=== PATIENT | female | born 1940 ===

== ENCOUNTER 2016-12-16 12:54 | Inpatient (IN) | payer OTHER ==
[2016-12-16] MEDS ORDERED: BISACODYL 10 MG SUPP PR PRN (16:49)
[2016-12-16] MEDS: SENNOSIDES 1 TAB PO SCH ×2 (17:45→21:36)
[2016-12-16] MEDS: ACETAMINOPHEN 325 MG TAB PO PRN (17:45)
--- NOTE | 2016-12-16 18:58 | GHP ---
[f rep st] HISTORY AND PHYSICAL POST ADMISSION PHYSICIAN EVALUATION AND REHABILITATION TREATMENT PLAN DATE OF ADMISSION: 12/16/2016 DATE OF EVALUATION: 12/16/2016 TIME OF EVALUATION: 1640 REFERRING FACILITY: [facility] REFERRING PHYSICIAN: Dr. Shipman IMPAIRMENT GROUP: 1.1. 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 ETIOLOGIC DIAGNOSIS: Left body involvement (right brain). HISTORY OF PRESENT ILLNESS: This patient went to bed on 12/12/2016, and then woke up not long after with difficulty rolling over in bed, and inability to reposition herself. Facial drooping was noted, 911 was called, and patient was taken to [facility] on a stroke alert. She received thrombolysis. She was diagnosed with a right internal carotid artery and middle cerebral artery occlusion with left hemiparesis, sensory loss and neglect. She received IV hydration in the hospital, but this was discontinued yesterday morning. She had headaches. She had at least 1 dose of tramadol, but mostly headaches have responded to acetaminophen. She was initially treated with labetalol and nicardipine, and has subsequently been treated with metoprolol. She was started on an aspirin and Lovenox 24 hours after lytic therapy. A statin was begun. She began work with PT, OT, and COLLEGE FOOTBALL COACH, and is on a dysphagia diet. There was a brief episode of paroxysmal atrial fibrillation. She had dysuria and a urinalysis was consistent with urinary tract infection. She got a single dose of ceftriaxone today and culture results are pending. LABS AND STUDIES IN THE HOSPITAL: A head CT showed poor meyer-white distinction involving the right basal ganglia, consistent with acute ischemic changes and a hyperdensity of the right middle cerebral artery suggesting thrombosis. There was no hemorrhage seen. CT angiogram showed obstruction of the right distal supraclinoid internal carotid artery and the proximal right middle cerebral artery. 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 An MRI of the brain done on December 13 showed a large territory right MCA infarct with mass effect and development of 7 mm of midline shift. Echocardiogram was done on 12/12. She had normal systolic function, with an ejection fraction of 66%. She had aortic root dilatation of 4.1 cm. Mitral valve was a tissue valve and had very mild regurgitation. Left atrium was normal. There was no [id number] shift noted with contrast injection. A BMP on 12/16/2016 was entirely within normal limits , with a BUN of 13 and a creatinine of 0.88. CBC on 12/16/2016 was also normal. PRECAUTIONS: She is a fall risk and she has aspiration precautions. ACTIVE COMORBIDITIES: She has a tier 2 comorbidity of dysphagia and tier 3 comorbidities of hemiparesis and morbid obesity. PAST MEDICAL HISTORY: 1. Cardiac arrhythmia. 2. Hypertension. 3. Mitral valve disease. 4. Chronic benzodiazepine use. 5. Renal artery stenosis. 6. Left knee osteoarthritis. PAST SURGICAL HISTORY: She has had mitral valve replacement. She has had renal artery stenting x2. She has had an arthroscopic procedure to the left knee. She has had an appendectomy, and she has had an abdominal hernia repair. MEDICATIONS PRIOR TO ADMISSION: 1. Alprazolam 0.25 mg, unknown frequency. 2. Aspirin 81 mg p.o. q. day. 3. Diltiazem 90 mg q.8 hours. 4. Enalapril 10 mg p.o. q. day. 5. Hydrochlorothiazide 25 mg p.o. q. day. 6. Metoprolol 100 mg p.o. b.i.d. 7. Potassium chloride 20 mEq b.i.d. ALLERGIES: She reports a reaction to iodinated contrast material with tachycardia. ADMISSION MEDICATIONS: 1. Acetaminophen 650 mg p.o. q.6 hours p.r.n. 2. Alprazolam 0.25 mg p.o. t.i.d. p.r.n. 3. Aspirin 325 mg p.o. q. day. 4. Atorvastatin 40 mg p.o. q.h.s. 5. Cefuroxime 250 mg p.o. b.i.d. 6. Famotidine 20 mg p.o. q. day. 7. Metoprolol 100 mg p.o. b.i.d. 8. Polyethylene glycol 17 g p.o. q. day p.r.n. 9. Senna/docusate 2 tablets p.o. b.i.d. SOCIAL HISTORY: She is . She lives with her . They live in [place] and they are visiting their son and in [place]. There are several other children in [place], and they intend to return to [place] when she completes inpatient rehabilitation. She is a nonsmoker and a nondrinker. 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 REVIEW OF SYSTEMS: She reports a headache and she also feels lightheaded. She denies vertigo. Otherwise, she is not in pain. She has reduced awareness of the left side. She has weakness in her left upper and lower extremities. She reports that it is difficult to swallow, and sometimes she feels like she is strangling, but she is trying to keep up on water even though she is on thickened liquids. She denies cough or dyspnea. She denies fevers or chills. She no longer has dysuria. She has constipation times several days and she has reflux symptoms. She reports that she does not habitually climb stairs in her usual life. When she has stayed at her son's house which has a set of stairs that she needs to climb and descend, it takes her a long time, and sometimes she does it on her hands and knees due to left knee pain. Otherwise a 10-point review of systems is negative. PHYSICAL EXAM: VITALS: Blood pressure is 141/72, heart rate is 80, respiratory rate is 18, oxygen saturation is 91% on room air, temperature is 37.2 degrees centigrade. Her weight in the acute care hospital was 184 pounds or 84 kg, for a body mass index of 32.5. GENERAL: This is a well-nourished, well-developed, obese woman, lying in bed in a hospital gown, cooperative and in no acute distress. HEENT: Extraocular movements are intact, but she has a right gaze preference. Pupils are equal, round, and reactive to light. Mucous membranes are moist. Dentition is in good condition. She has a mildly crowded airway, Mallampati class II. NECK: Supple. HEART: There is a regular rate and rhythm, with no murmurs, rubs, or gallops. LUNGS: Clear to auscultation bilaterally. ABDOMEN: Soft, nontender, nondistended, with normoactive bowel sounds, and no hepatosplenomegaly. EXTREMITIES: There is no cyanosis, clubbing , or edema. Radial pulse is 2+ on the right and 1+ on the left. Dorsalis pedis pulse is trace on the left and 1+ on the right. NEUROLOGIC: She is alert and oriented x3. Cranial nerves 2 through 12 are grossly intact. Left upper extremity has some movement to the fingers with a minimal hand cage shift manager and minimal finger extension. Otherwise, her left upper extremity has flaccid paralysis. Left lower extremity has flaccid paralysis. Her strength on the right side is normal. Sensation on the right is intact to light touch. Sensation on the left is absent to light touch. Deep tendon reflexes are 2+ bilaterally at the biceps, patellar, and Achilles tendons. She needs considerable assistance of 1 person to arise to seated from supine. SKIN: There are no rashes or skin lesions noted. IMPRESSION: This patient is a 76-year-old woman who has suffered a large right middle cerebral artery stroke with dense left hemiparesis, left hemineglect, and loss of sensation on the left upper and lower extremities. She received tPA , thrombolysis in the emergency department at [facility], and it is unclear whether or not she had any improvement. Brain imaging showed continued occlusion of the internal carotid artery and the middle cerebral artery. She was participating in physical and occupational therapies, and was ready for inpatient rehabilitation. In the hospital she was begun on atorvastatin. She was allowed permissive hypertension initially and then metoprolol was resumed, after treatment with labetalol and nicardipine. She is treated with the aspirin as an anti-platelet agent, with the plan to resume anticoagulation once she is out of danger for hemorrhagic conversion in approximately 7-10 days. The etiology of the stroke is presumably atrial fibrillation. She did have an episode of paroxysmal atrial fibrillation on monitoring in the hospital. She has the comorbid conditions of hypertension, and she has been started on atorvastatin as well as a stroke preventive, and she has dyslipidemia. Her cholesterol in the hospital was 295 with an HDL of 43 and an LDL 183. She is appropriate for inpatient rehabilitation with major deficits to mobility , ADLs and swallowing. She will benefit from comprehensive therapies to optimize her recovery. Additionally, she needs nursing care for fall risk, bowel and bladder, skin integrity, medication administration and medication education. She needs the care of physician regarding anticoagulation, hypertension, dyslipidemia, and attention to any other symptoms which might develop. Her goal is to complete rehabilitation and then discharge to her son's house in [place]. Ultimately, she and her desire to return to [place], and they were discussing doing this as an automobile trip, so she will need to be able to do car transfers and tolerate the rigors of a long drive in order to accomplish this. For a safe discharge she will need to achieve contact guard assist to standby assist for mobility, swallowing, ADLs and cognition. She and her will need to be able to manage her medications. There will need to be neurologic education for the patient and her family. She will have therapy with physical therapy, occupational therapy, and speech and language pathology on a modified schedule for 45-60 minutes per discipline per day on 5-7 days of the week to total 15 hours a week or more. Her expected duration of stay is 3-4 weeks. It is anticipated that upon discharge she will continue to benefit from home health services including speech and language pathology, occupational therapy, physical therapy, and a stroke support group. ASSESSMENT/PLAN: 1. Right middle cerebral artery cerebrovascular accident 12/12/16 affecting the right parietal and temporal lobes and basal ganglia, with left hemiparesis and sensory loss. Physical therapy and occupational therapy to optimize mobility and activities of daily living. 2. Dysphagia, status post cerebrovascular accident. Assessment and treatment per Speech and Language Pathology. 3. Secondary stroke prophylaxis, blood pressure control, lipid control, and resumption of anticoagulation starting on December 19, 2016. There may be further discussion with the patient and her family regarding warfarin versus a direct oral anticoagulant. 4. Hypertension, with metoprolol having been resumed during her hospitalization. She was previously also on enalapril and hydrochlorothiazide. Her blood pressure will be monitored and her prior home medications will be resumed as needed. 5. Headache. Continue acetaminophen. 6. Left knee degenerative joint disease with considerable pain. Continue acetaminophen and consider other pain medications if her knee pain interferes with her ability to participate in therapies. 7. Constipation. She declined polyethylene glycol yesterday as she was afraid of fecal incontinence. She was reassured that it is important for her bowels to move and the staff here would be able to clean her up should she have incontinence. Will discontinue senna/docusate as it is less effective than senna alone, and continue senna 1 tablet b.i.d. Also, will schedule polyethylene glycol. Finally, will have bisacodyl suppository and an enema available if these are necessary. 8. Gastroesophageal reflux disorder. May be worse with constipation. Continue famotidine and treat constipation. 9. Paroxysmal atrial fibrillation. Resume anticoagulation starting 7 days after CVA. For now, continue aspirin at 325 mg per day. 10. Urinary tract infection with symptoms and a suggestive urinalysis. Continue ceftriaxone as ordered out of the hospital, and will follow up each day on the results of the urine culture to ensure that she is on the appropriate antibiotic. 11. History of chronic benzodiazepine dependence. Continue alprazolam. 12. Prophylaxis. With hemiparesis she is at elevated risk for deep venous thrombosis. Enoxaparin will be used 40 mg subcutaneous q.day at a preventive dose. Continue famotidine for GERD. No current indication for a proton pump inhibitor. FOLLOWUP: She is recommended to follow up with neurologist, Dr. Topete, in approximately 1 month. /[id number]/MODL MTDD
[2016-12-16] MEDS: ATORVASTATIN CALCIUM 40 MG TAB PO SCH (21:35)
[2016-12-16] MEDS: METOPROLOL TARTRATE 100 MG TAB PO SCH (21:35)
[2016-12-16] MEDS: CEFUROXIME AXETIL 250 MG TAB PO SCH (21:36)
[2016-12-17] MEDS: ACETAMINOPHEN 325 MG TAB PO PRN (04:45)
[2016-12-17] MEDS ORDERED: POLYETHYLENE GLYCOL 3350 17 GM PKT PO SCH (09:00)
[2016-12-17] MEDS: CEFUROXIME AXETIL 250 MG TAB PO SCH ×2 (09:13→20:55)
[2016-12-17] MEDS: ENOXAPARIN 40 MG/0.4 ML SYR SC SCH (09:13)
[2016-12-17] MEDS: ASPIRIN EC 325 MG TAB PO SCH (09:13)
[2016-12-17] MEDS: FLUoxetine 10 MG CAP PO SCH (09:14)
[2016-12-17] MEDS: METOPROLOL TARTRATE 100 MG TAB PO SCH ×2 (09:14→20:54)
[2016-12-17] MEDS: FAMOTIDINE 20 MG TAB PO SCH (09:14)
[2016-12-17] MEDS: SENNOSIDES 1 TAB PO SCH ×2 (09:15→20:56)
--- NOTE | 2016-12-17 12:52 | SOAPPROG ---
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 Physical therapy and occupational therapy to optimize mobility and activities of daily living. * Dysphagia, status post cerebrovascular accident. Assessment and treatment per Speech and Language Pathology. * Secondary stroke prophylaxis. Blood pressure control, lipid control, and resumption of anticoagulation starting on December 19, 2016. There may be further discussion with the patient and her family regarding warfarin versus a direct oral anticoagulant. * Hypertension, with metoprolol having been resumed during her hospitalization. Adequate control with metoprolol alone. She was previously also on enalapril and hydrochlorothiazide. Her blood pressure will be monitored and her prior home medications will be resumed as needed. * Urinary tract infection with symptoms and a suggestive urinalysis. As of 12/17 culture with 75,000 CFU per mL lactose fermenting Gram-negative rods. Await final ID and susceptibility. Continue cefuroxime as ordered out of the hospital, and will follow up each day on the results of the urine culture to ensure that she is on the appropriate antibiotic. * Insomnia and somnolence. She declines the offer of trazodone today 2016. Continue to monitor. Consider hypnotic at night versus stimulant during the day. * Headache. Continue acetaminophen. * Left knee degenerative joint disease with considerable pain. Continue acetaminophen and consider other pain medications if her knee pain interferes with her ability to participate in therapies. * Constipation. Resolved. Continue laxatives. * Gastroesophageal reflux disorder. Continue famotidine and treat constipation. * Paroxysmal atrial fibrillation. Resume anticoagulation starting 7 days after CVA. For now, continue aspirin at 325 mg per day. * History of chronic benzodiazepine dependence. Continue alprazolam p.r.n.; not used last night or today 12/17/2016.. * Prophylaxis. With hemiparesis she is at elevated risk for deep venous thrombosis. Enoxaparin will be used 40 mg subcutaneous q.day at a preventive dose. Continue famotidine for GERD. No current indication for a proton pump inhibitor. 12/17/16 15:41 Subjective: Reports poor sleep which is a chronic issue. Has had sleepiness during the day. Alertness may be impacting participation in rehabilitation. Not in pain, no fevers or chills, no cough or dyspnea. Still has dysuria and asks about Sunni Mora which in her experience has helped relieve the symptoms of bladder infection. Objective: Vital Signs Temp Pulse Resp BP Pulse Ox 36.9 C 58 L 18 138/80 H 93 12/17/16 06:48 12/17/16 09:14 12/17/16 06:48 12/17/16 09:14 12/17/16 06:48 12/16/16 12/17/16 12/18/16 05:59 05:59 05:59 Intake Total 180 240 Output Total 500 Balance -320 240 Physical Exam - Physical Exam General Appearance: WD/WN, alert, no apparent distress, obese Respiratory: normal breath sounds, No crackles, No rhonchi, No wheezing Cardiac/Chest: regular rate, rhythm, No edema, No diastolic murmur, No systolic murmur Skin: normal color, warm/dry Neuro/Psych: alert, normal mood/affect, oriented x 3, facial droop (left), motor weakness (LUE & LLE), other (Right gaze preference) ICD10 Worksheet Patient Problems: Problems Problem Status Onset Cerebrovascular accident (CVA) involving right middle cerebral artery territory Acute Left hemiparesis Acute - ICD10 Problem Qualifiers (1) Cerebrovascular accident (CVA) involving right middle cerebral artery territory (2) Left hemiparesis
--- NOTE | 2016-12-17 12:52 | PDOREHIP ---
Admission [facility] - Admission - 3 Day Assessment Period Admission Date/Day 1: 12/16/16 Day 2: 12/17/16 Day 3: 12/18/16 - Active Diagnoses Comorbidities and Co-existing Conditions at Admission: 13634. None of the Above - Skin Conditions Unhealed Pressure Ulcer (1 or more/Stage 1 or >)-Admission: 0. No
[2016-12-17] MEDS: ATORVASTATIN CALCIUM 40 MG TAB PO SCH (20:54)
[2016-12-17] MEDS: ALPRAZolam 0.5 MG TAB PO PRN (21:05)
[2016-12-18] MEDS: CEFUROXIME AXETIL 250 MG TAB PO SCH ×2 (09:11→20:43)
[2016-12-18] MEDS: FLUoxetine 10 MG CAP PO SCH (09:12)
[2016-12-18] MEDS: ASPIRIN EC 325 MG TAB PO SCH (09:12)
[2016-12-18] MEDS: FAMOTIDINE 20 MG TAB PO SCH (09:12)
[2016-12-18] MEDS: SENNOSIDES 1 TAB PO SCH ×2 (09:13→20:54)
[2016-12-18] MEDS: METOPROLOL TARTRATE 100 MG TAB PO SCH ×2 (09:24→20:42)
[2016-12-18] MEDS: ENOXAPARIN 40 MG/0.4 ML SYR SC SCH (09:36)
--- NOTE | 2016-12-18 13:09 | SOAPPROG ---
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 Initial functional independence measure 37. She requires maximal assistance of 2 for bed mobility and for sliding board transfers otherwise she is transferred by Prashanth lift. Sitting balance is poor. She has decreased attention an easy fatigue. She is unsafe in the wheelchair as she tends to slide out of it. She has no volitional movement and no sensation to palpation on the left upper and lower extremities. She requires maximum assistance for upper body dressing and total assistance for lower body dressing. Continue physical therapy and occupational therapy to optimize mobility and activities of daily living. * Dysphagia, status post cerebrovascular accident. Assessment and treatment per Speech and Language Pathology. * Cognitive impairment with decreased executive function which impact problem solving and memory. She has decreased inhibition and and repair skills. * Insomnia and somnolence. Impacting participation in therapies. Per report prior to the stroke she was a night owl and often slept in until 10 or 11 in the morning. Will initiate trazodone at HS 50 mg, as well as melatonin 3 mg. will shift morning ADLs as late as possible which will likely be 9:00 a.m.. Continue to monitor. * Secondary stroke prophylaxis. Blood pressure control, lipid control, and resumption of anticoagulation starting on December 19, 2016. There may be further discussion with the patient and her family regarding warfarin versus a direct oral anticoagulant. * Hypertension, with metoprolol having been resumed during her hospitalization. Adequate control with metoprolol alone. She was previously also on enalapril and hydrochlorothiazide. Her blood pressure will be monitored and her prior home medications will be resumed as needed. * Urinary tract infection with symptoms and a suggestive urinalysis. As of 12/17 culture with 75,000 CFU per mL lactose fermenting Gram-negative rods. Await final ID and susceptibility. Continue cefuroxime as ordered out of the hospital, and will follow up each day on the results of the urine culture to ensure that she is on the appropriate antibiotic. * Headache. Continue acetaminophen. * Left knee degenerative joint disease with considerable pain. Continue acetaminophen and consider other pain medications if her knee pain interferes with her ability to participate in therapies. * Constipation. Resolved. Continue laxatives. * Gastroesophageal reflux disorder. Continue famotidine and treat constipation. * Paroxysmal atrial fibrillation. Resume anticoagulation starting 7 days after CVA. For now, continue aspirin at 325 mg per day. * History of chronic benzodiazepine dependence. Continue alprazolam p.r.n.; not used last night or today 12/17/2016.. * Prophylaxis. With hemiparesis she is at elevated risk for deep venous thrombosis. Enoxaparin will be used 40 mg subcutaneous q.day at a preventive dose. Continue famotidine for GERD. No current indication for a proton pump inhibitor. * Doppler ultrasound of lower extremities done today 12/18/2016 as nurse found caps tender to palpation. There was no DVT. Attended staffing, 15 min. D/W case mgmt, nursing, PT, OT, RESOLUTION AGENT. Intends to return home with to [place], by car; interim discharge to son's home in [place] is possible. Currently very disabled; expect prolonged rehabilitation course. Tentative discharge date of 01/17/17 was set. 12/19/16 15:21 Subjective: Somnolent through most of the morning. Able to be awakened but would fall asleep again. In the morning she was unable to maintain alertness sufficient to participate in therapy. They have lunch time she had awakened. Nurse noted poor sleep last night. reports she was up until about 3 in the morning. Otherwise without complaints. Not in pain, no cough, dyspnea, fevers , chills. Objective: Vital Signs Temp Pulse Resp BP Pulse Ox 36.8 C 67 16 128/58 H 93 12/17/16 20:00 12/18/16 09:24 12/18/16 09:21 12/18/16 09:24 12/18/16 09:21 12/17/16 12/18/16 12/19/16 05:59 05:59 05:59 Intake Total 180 610 240 Output Total 500 350 Balance -320 260 240 - Time Spent With Patient Time Spent With Patient: Greater than 35 minutes floor time today, including more than 50% of time in coordination of care during staffing meeting, and counseling patient and . Physical Exam - Physical Exam General Appearance: WD/WN, alert, no apparent distress, obese Respiratory: normal breath sounds, No crackles, No rhonchi, No wheezing Cardiac/Chest: regular rate, rhythm, No edema, No diastolic murmur, No systolic murmur Skin: normal color, warm/dry Neuro/Psych: alert, normal mood/affect, motor weakness (Left upper and lower extremity), sensory deficit (Left upper and lower extremities) ICD10 Worksheet Patient Problems: Problems Problem Status Onset Cerebrovascular accident (CVA) involving right middle cerebral artery territory Acute Left hemiparesis Acute - ICD10 Problem Qualifiers (1) Cerebrovascular accident (CVA) involving right middle cerebral artery territory (2) Left hemiparesis
[2016-12-18] MEDS: MELATONIN 3 MG TAB PO SCH ×2 (16:03→20:54)
[2016-12-18] MEDS: traZODone 50 MG TAB PO SCH ×2 (16:03→20:43)
[2016-12-18] MEDS: ATORVASTATIN CALCIUM 40 MG TAB PO SCH (20:42)
[2016-12-18] MEDS: ACETAMINOPHEN 325 MG TAB PO PRN (20:43)
[2016-12-18] MEDS: ALPRAZolam 0.5 MG TAB PO PRN (20:46)
[2016-12-19] MEDS: ACETAMINOPHEN 325 MG TAB PO PRN (07:41)
[2016-12-19] MEDS: ENOXAPARIN 40 MG/0.4 ML SYR SC SCH (07:44)
[2016-12-19] MEDS: ASPIRIN EC 325 MG TAB PO SCH (08:21)
[2016-12-19] MEDS: CEFUROXIME AXETIL 250 MG TAB PO SCH (08:22)
[2016-12-19] MEDS: FAMOTIDINE 20 MG TAB PO SCH (08:22)
[2016-12-19] MEDS: FLUoxetine 10 MG CAP PO SCH (08:22)
[2016-12-19] MEDS: SENNOSIDES 1 TAB PO SCH ×2 (08:22→19:40)
[2016-12-19] MEDS: METOPROLOL TARTRATE 100 MG TAB PO SCH ×2 (08:24→19:40)
[2016-12-19] MEDS: PREPARATION H 51 GM CRTUBE PR PRN ×2 (11:58→13:41)
--- NOTE | 2016-12-19 15:19 | SOAPPROG ---
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 Initial functional independence measure 37 on 12/18/2016. She requires maximal assistance of 2 for bed mobility and for sliding board transfers otherwise she is transferred by Prashanth lift. Sitting balance is poor. She has decreased attention an easy fatigue. She is unsafe in the wheelchair as she tends to slide out of it. She has no volitional movement and no sensation to palpation on the left upper and lower extremities. She requires maximum assistance for upper body dressing and total assistance for lower body dressing. Continue physical therapy and occupational therapy to optimize mobility and activities of daily living. * Dysphagia, status post cerebrovascular accident. Advanced to water protocol. Continue Speech and Language Pathology. * Cognitive impairment with decreased executive function which impact problem solving and memory. She has decreased inhibition and and repair skills. * Insomnia and somnolence. Impacting participation in therapies. Per report prior to the stroke she was a night owl and often slept in until 10 or 11 in the morning. Slept much better after trazodone at HS 50 mg, as well as melatonin 3 mg starting 12/18/2016. Shift morning ADLs as late as possible which will likely be 9:00 a.m. Continue to monitor. * Secondary stroke prophylaxis. Blood pressure control, lipid control, and resumption of anticoagulation starting on December 19, 2016. * Hypertension, with metoprolol having been resumed during her hospitalization. Has developed bradycardia. Reduced metoprolol to 50 mg twice daily and initiate enalapril beginning 12/19/2016. * Urinary tract infection with symptoms and a suggestive urinalysis. ID and susceptibility with 75,000 CFU per mL E coli susceptible to cefazolin appropriately treated with cefuroxime. Has had frequent urination today but was able to completely empty bladder. Will recheck urinalysis. * Headache. Continue acetaminophen. * Left knee degenerative joint disease with considerable pain. Continue acetaminophen and consider other pain medications if her knee pain interferes with her ability to participate in therapies. * Constipation. Resolved. Continue laxatives. * Gastroesophageal reflux disorder. Continue famotidine and treat constipation. * Paroxysmal atrial fibrillation. Resume anticoagulation starting 12/19/2016. For now, continue aspirin at 325 mg per day until therapeutic on warfarin. * History of chronic benzodiazepine dependence. Continue alprazolam p.r.n.; not used last night or today 12/17/2016.. * Prophylaxis. With hemiparesis she is at elevated risk for deep venous thrombosis. Enoxaparin will be used 40 mg subcutaneous q.day at a preventive dose. Continue famotidine for GERD. No current indication for a proton pump inhibitor. Intends to return home with to [place], by car; interim discharge to son's home in [place] is possible. Currently very disabled; expect prolonged rehabilitation course. Tentative discharge date of 01/17/17 was set. 12/19/16 15:14 Subjective: She is concerned today that she needs IV fluids to maintain hydration. Slept very well on trazodone plus melatonin last night. Not in pain. No cough, dyspnea, fevers, chills. Had some Coca-Cola yesterday but felt that she has strangled on it. Has been advanced to water protocol by speech therapy. Objective: Vital Signs Temp Pulse Resp BP Pulse Ox 36.6 C 44 L 16 147/70 H 95 12/19/16 07:38 12/19/16 10:33 12/19/16 07:38 12/19/16 10:33 12/19/16 10:33 12/18/16 12/19/16 12/20/16 05:59 05:59 05:59 Intake Total 472 429 8602 Output Total 350 650 775 Balance 260 -190 377 Physical Exam - Physical Exam General Appearance: WD/WN, alert, no apparent distress, obese Respiratory: No respiratory distress, No accessory muscle use Cardiac/Chest: regular rate, rhythm, No edema, No diastolic murmur, No systolic murmur Skin: normal color, warm/dry Neuro/Psych: alert, normal mood/affect ICD10 Worksheet Patient Problems: Problems Problem Status Onset Cerebrovascular accident (CVA) involving right middle cerebral artery territory Acute Left hemiparesis Acute - ICD10 Problem Qualifiers (1) Cerebrovascular accident (CVA) involving right middle cerebral artery territory (2) Left hemiparesis
[2016-12-19] MEDS ORDERED: WARFARIN SODIUM 5 MG TAB PO SCH (15:30)
[2016-12-19] MEDS: WARFARIN SODIUM 5 MG TAB PO SCH (16:08)
[2016-12-19 17:47] LABS: COLOR PALE YELLOW; LEUKOCYTE ESTERASE,URINE NEGATIVE (NEGATIVE); NITRITE,URINE NEGATIVE (NEGATIVE)
[2016-12-19] MEDS: MELATONIN 3 MG TAB PO SCH (19:41)
[2016-12-19] MEDS: traZODone 50 MG TAB PO SCH (19:41)
[2016-12-19] MEDS: ATORVASTATIN CALCIUM 40 MG TAB PO SCH (19:41)
[2016-12-20] MEDS ORDERED: ENALAPRIL MALEATE 10 MG TAB PO SCH (09:00)
[2016-12-20] MEDS: FLUoxetine 10 MG CAP PO SCH (09:38)
[2016-12-20] MEDS: SENNOSIDES 1 TAB PO SCH ×2 (09:38→19:51)
[2016-12-20] MEDS: ASPIRIN EC 325 MG TAB PO SCH (09:38)
[2016-12-20] MEDS: FAMOTIDINE 20 MG TAB PO SCH (09:38)
[2016-12-20] MEDS: ENALAPRIL MALEATE 5 MG TAB PO SCH (09:40)
[2016-12-20] MEDS: METOPROLOL TARTRATE 100 MG TAB PO SCH ×2 (09:40→19:53)
[2016-12-20] MEDS: ENOXAPARIN 40 MG/0.4 ML SYR SC SCH (09:47)
--- NOTE | 2016-12-20 12:33 | SOAPPROG ---
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 Initial functional independence measure 37 on 12/18/2016. She requires maximal assistance of 2 for bed mobility and for sliding board transfers otherwise she is transferred by Prashanth lift. Sitting balance is poor. She has decreased attention an easy fatigue. She is unsafe in the wheelchair as she tends to slide out of it. She has no volitional movement and no sensation to palpation on the left upper and lower extremities. She requires maximum assistance for upper body dressing and total assistance for lower body dressing. Continue physical therapy and occupational therapy to optimize mobility and activities of daily living. * Dysphagia, status post cerebrovascular accident. Assessment and treatment per Speech and Language Pathology. * Cognitive impairment with decreased executive function which impact problem solving and memory. She has decreased inhibition and and repair skills. * Insomnia and somnolence. Impacting participation in therapies. Per report prior to the stroke she was a night owl and often slept in until 10 or 11 in the morning. Much improved with trazodone at HS 50 mg, as well as melatonin 3 mg. Shifted morning ADLs as late as possible, 9:00 a.m.. Continue to monitor. * Secondary stroke prophylaxis. Blood pressure control, lipid control, and resumption of anticoagulation starting on December 19, 2016. There may be further discussion with the patient and her family regarding warfarin versus a direct oral anticoagulant. * Hypertension, with metoprolol having been resumed during her hospitalization. Bradycardia of progressively worse, metoprolol change from 100 mg twice daily to 50 mg twice daily on 12/19/2016 and enalapril 10 mg q.day initiated on 2016. Continue to monitor. * Urinary tract infection with symptoms and a suggestive urinalysis, treated with cefuroxime to which E coli was susceptible, and resolved. * Headache. Continue acetaminophen. * Left knee degenerative joint disease with considerable pain. Continue acetaminophen and consider other pain medications if her knee pain interferes with her ability to participate in therapies. * Constipation. Resolved. Continue laxatives. * Gastroesophageal reflux disorder. Continue famotidine and treat constipation. * Paroxysmal atrial fibrillation. Resumed anticoagulation starting 7 days after CVA, with warfarin begun 12/19/2016. DC aspirin and enoxaparin when she is therapeutic. * History of chronic benzodiazepine dependence. Continue alprazolam p.r.n.; not used last night or today 12/17/2016.. * Prophylaxis. With hemiparesis she is at elevated risk for deep venous thrombosis. Enoxaparin will be used 40 mg subcutaneous q.day at a preventive dose. Continue famotidine for GERD. No current indication for a proton pump inhibitor. * Doppler ultrasound of lower extremities done today 12/18/2016 as nurse found caps tender to palpation. There was no DVT. Intends to return home with to [place], by car; interim discharge to son's home in [place] is possible. Currently very disabled; expect prolonged rehabilitation course. Tentative discharge date of 01/17/17 was set. 12/20/16 12:27 Subjective: Complains of "not feeling myself." Nothing specific. Denies pain, cough, dyspnea, fevers, chills. Reports frequent urination. Bowels are moving. She says she lost track of her left hand which was not uncomfortable sensation, and nurses help her find it again. Objective: Vital Signs Temp Pulse Resp BP Pulse Ox 37.0 C 58 L 16 124/68 H 92 12/20/16 06:45 12/20/16 09:40 12/20/16 06:45 12/20/16 09:40 12/20/16 06:45 12/19/16 12/20/16 12/21/16 05:59 05:59 05:59 Intake Total 460 1608 440 Output Total 650 1225 400 Balance -190 383 40 Physical Exam - Physical Exam General Appearance: WD/WN, alert, no apparent distress Respiratory: normal breath sounds, No crackles, No rhonchi, No wheezing Cardiac/Chest: regular rate, rhythm, No edema, No diastolic murmur, No systolic murmur Abdomen: normal bowel sounds, non-tender, soft, No distended Skin: normal color, warm/dry Neuro/Psych: alert, normal mood/affect, motor weakness (Left upper and lower extremity), sensory deficit (Left upper and lower extremity), other (Left hemineglect; unable to locate examiner when on her left side.) ICD10 Worksheet Patient Problems: Problems Problem Status Onset Cerebrovascular accident (CVA) involving right middle cerebral artery territory Acute Left hemiparesis Acute - ICD10 Problem Qualifiers (1) Cerebrovascular accident (CVA) involving right middle cerebral artery territory (2) Left hemiparesis
[2016-12-20] MEDS: WARFARIN SODIUM 5 MG TAB PO SCH (16:41)
[2016-12-20] MEDS: PREPARATION H 51 GM CRTUBE PR PRN (16:52)
[2016-12-20] MEDS: ALPRAZolam 0.5 MG TAB PO PRN (19:51)
[2016-12-20] MEDS: traZODone 50 MG TAB PO SCH (19:52)
[2016-12-20] MEDS: ATORVASTATIN CALCIUM 40 MG TAB PO SCH (19:52)
[2016-12-20] MEDS: ACETAMINOPHEN 325 MG TAB PO PRN (19:52)
[2016-12-20] MEDS: MELATONIN 3 MG TAB PO SCH (19:53)
[2016-12-21] MEDS: ACETAMINOPHEN 325 MG TAB PO PRN ×2 (06:26→20:07)
[2016-12-21] MEDS ORDERED: ASPIRIN 81 MG CHEWABLE TAB PO SCH (09:00)
[2016-12-21] MEDS: METOPROLOL TARTRATE 100 MG TAB PO SCH (09:06)
[2016-12-21] MEDS: FLUoxetine 10 MG CAP PO SCH (09:51)
[2016-12-21] MEDS: ASPIRIN EC 325 MG TAB PO SCH (09:51)
[2016-12-21] MEDS: ENALAPRIL MALEATE 5 MG TAB PO SCH (09:52)
[2016-12-21] MEDS: FAMOTIDINE 20 MG TAB PO SCH (09:52)
[2016-12-21] MEDS: ENOXAPARIN 40 MG/0.4 ML SYR SC SCH (09:52)
[2016-12-21] MEDS: SENNOSIDES 1 TAB PO SCH ×2 (09:53→20:06)
[2016-12-21] MEDS: PREPARATION H 51 GM CRTUBE PR PRN (09:58)
[2016-12-21 11:12] LABS: INR 1.07 (0.83-1.16); PROTIME(PATIENT) 13.8 SEC (12.0-15.0)
[2016-12-21] MEDS: METOPROLOL TARTRATE 25 MG TAB PO SCH ×2 (11:18→21:03)
--- NOTE | 2016-12-21 12:52 | SOAPPROG ---
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 Initial functional independence measure 37 on 12/18/2016. She requires maximal assistance of 2 for bed mobility and for sliding board transfers otherwise she is transferred by Prashanth lift. Sitting balance is poor. She has decreased attention an easy fatigue. She is unsafe in the wheelchair as she tends to slide out of it. She has no volitional movement and no sensation to palpation on the left upper and lower extremities. She requires maximum assistance for upper body dressing and total assistance for lower body dressing. Continue physical therapy and occupational therapy to optimize mobility and activities of daily living. * Dysphagia, status post cerebrovascular accident. Poor oral bolus management including discoordination, pocketing L sulcus, and leak from L labial seal. Getting e-stim therapy. Continue Speech and Language Pathology. * Cognitive impairment with decreased executive function which impact problem solving and memory. She has decreased inhibition and and repair skills. * Insomnia and somnolence. Impacting participation in therapies. Per report prior to the stroke she was a night owl and often slept in until 10 or 11 in the morning. Much improved with trazodone at HS 50 mg, as well as melatonin 3 mg. Shifted morning ADLs as late as possible, 9:00 a.m.. Continue to monitor. * Secondary stroke prophylaxis. Blood pressure control, lipid control, and resumption of anticoagulation starting on December 19, 2016. * Paroxysmal AFib. Will stop warfarin and initiate apixaban 12/21/2016. May return to warfarin if insurance does not cover apixaban. * Hypertension, with metoprolol having been resumed during her hospitalization. Bradycardia of progressively worse, metoprolol changed from 100 mg twice daily to 50 mg twice daily on 12/19/2016; taper further to 25 mg twice daily on 12/21/2016; continue and enalapril 10 mg q.day initiated on 12/20/2016. Continue to monitor. * Urinary tract infection with symptoms and a suggestive urinalysis, treated with cefuroxime to which E coli was susceptible, and resolved. * Headache. Continue acetaminophen. * Left knee degenerative joint disease with considerable pain. Continue acetaminophen and consider other pain medications if her knee pain interferes with her ability to participate in therapies. * Constipation. Resolved. Continue laxatives. * Gastroesophageal reflux disorder. Continue famotidine and treat constipation. * Paroxysmal atrial fibrillation. Resumed anticoagulation starting 7 days after CVA, with warfarin begun 12/19/2016. DC aspirin and enoxaparin when she is therapeutic. * History of chronic benzodiazepine dependence. Continue alprazolam p.r.n.; not used last night or today 12/17/2016.. * Prophylaxis. With hemiparesis she is at elevated risk for deep venous thrombosis. Enoxaparin will be used 40 mg subcutaneous q.day at a preventive dose. Continue famotidine for GERD. No current indication for a proton pump inhibitor. * Doppler ultrasound of lower extremities done 12/18/2016 as nurse found caps tender to palpation. There was no DVT. Intends to return home with to [place], by car; interim discharge to son's home in [place] is possible. Currently very disabled; expect prolonged rehabilitation course. Tentative discharge date of 01/17/17 was set. 12/21/16 12:48 Subjective: Does not want to continue warfarin as she does not want repeated blood draws. She thinks it is likely that her at night insurance will cover other anticoagulants. Otherwise without complaints. Slept well, no cough, dyspnea, fevers, chills. Objective: Vital Signs Temp Pulse Resp BP Pulse Ox 36.6 C 48 L 18 128/72 H 92 12/21/16 05:57 12/21/16 09:06 12/21/16 08:07 12/21/16 09:52 12/21/16 08:07 12/20/16 12/21/16 12/22/16 05:59 05:59 05:59 Intake Total 1608 1000 200 Output Total 1225 700 Balance 383 300 200 PT 13.8 SEC (12.0-15.0) 12/21/16 06:10 INR 1.07 (0.83-1.16) 12/21/16 06:10 Physical Exam - Physical Exam General Appearance: WD/WN, alert, no apparent distress, obese Respiratory: normal breath sounds, No crackles, No rhonchi, No wheezing Cardiac/Chest: regular rate, rhythm, No edema, No diastolic murmur, No systolic murmur Skin: normal color, warm/dry Neuro/Psych: alert, normal mood/affect, oriented x 3, motor weakness (Left upper and lower extremities) ICD10 Worksheet Patient Problems: Problems Problem Status Onset Cerebrovascular accident (CVA) involving right middle cerebral artery territory Acute Left hemiparesis Acute - ICD10 Problem Qualifiers (1) Cerebrovascular accident (CVA) involving right middle cerebral artery territory (2) Left hemiparesis
[2016-12-21] MEDS: ATORVASTATIN CALCIUM 40 MG TAB PO SCH (20:05)
[2016-12-21] MEDS: traZODone 50 MG TAB PO SCH (20:06)
[2016-12-21] MEDS: APIXABAN 5 MG TAB PO SCH (20:07)
[2016-12-22] MEDS ORDERED: CALCIUM CARBONATE 500 MG CHEWABLE TAB PO ONE ×2 (01:46→01:48)
[2016-12-22] MEDS: APIXABAN 5 MG TAB PO SCH ×2 (08:51→19:48)
[2016-12-22] MEDS: FAMOTIDINE 20 MG TAB PO SCH (08:52)
[2016-12-22] MEDS: ENALAPRIL MALEATE 5 MG TAB PO SCH (08:52)
[2016-12-22] MEDS: FLUoxetine 10 MG CAP PO SCH (08:52)
[2016-12-22] MEDS: SENNOSIDES 1 TAB PO SCH ×2 (09:02→19:50)
[2016-12-22] MEDS: METOPROLOL TARTRATE 25 MG TAB PO SCH ×2 (10:41→19:48)
--- NOTE | 2016-12-22 14:01 | SOAPPROG ---
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 Initial functional independence measure 37 on 12/18/2016. She requires maximal assistance of 2 for bed mobility and for sliding board transfers otherwise she is transferred by Prashanth lift. Sitting balance is poor. She has decreased attention an easy fatigue. She is unsafe in the wheelchair as she tends to slide out of it. Initiated standing today, . She requires maximum assistance for upper body dressing and total assistance for lower body dressing. Continue physical therapy and occupational therapy to optimize mobility and activities of daily living. * Dysphagia, status post cerebrovascular accident. Poor oral bolus management including discoordination, pocketing L sulcus, and leak from L labial seal. Getting e-stim therapy. Continue Speech and Language Pathology. * Cognitive impairment with decreased executive function which impact problem solving and memory. She has decreased inhibition and and repair skills. * Insomnia and somnolence. Improved with trazodone at HS 50 mg, as well as melatonin 3 mg. Per report prior to the stroke she was a night owl and often slept in until 10 or 11 in the morning. Shifted morning ADLs as late as possible, 9:00 a.m.. Continue to monitor. * Secondary stroke prophylaxis. Blood pressure control, lipid control, and resumption of anticoagulation starting on December 19, 2016. * Paroxysmal AFib. Stopped warfarin and initiated apixaban 12/21/2016, per patient's request as she does not want repeated blood tests. May return to warfarin if insurance does not cover apixaban. * Hypertension, with metoprolol having been resumed during her hospitalization. Bradycardia of progressively worse, metoprolol changed from 100 mg twice daily to 50 mg twice daily on 12/19/2016; taper further to 25 mg twice daily on 12/21/2016 and to 12.5 mg twice daily on 09/21/2016; continue and enalapril 10 mg q.day initiated on 12/20/2016. Continue to monitor. * Urinary tract infection with symptoms and a suggestive urinalysis, treated with cefuroxime to which E coli was susceptible, and resolved. * Headache. Continue acetaminophen. * Left knee degenerative joint disease with considerable pain. Continue acetaminophen and consider other pain medications if her knee pain interferes with her ability to participate in therapies. * Constipation. Resolved. Continue laxatives. * Gastroesophageal reflux disorder. Continue famotidine and treat constipation. * History of chronic benzodiazepine dependence. Continue alprazolam p.r.n. * Prophylaxis. With hemiparesis she is at elevated risk for deep venous thrombosis. On apixaban and enoxaparin discontinued. Continue famotidine for GERD. No current indication for a proton pump inhibitor. * Doppler ultrasound of lower extremities done 12/18/2016 as nurse found caps tender to palpation. There was no DVT. Intends to return home with to [place], by car; interim discharge to son's home in [place] is possible. Currently very disabled; expect prolonged rehabilitation course. Tentative discharge date of 01/17/17 was set. 12/22/16 13:57 Subjective: Reports poor sleep last night. Does not know why. She says that her feet were cold. Sleepy right now but just awoke from a nap. Working with physical therapy. Denies cough, dyspnea, fevers, chills. Not in pain. Objective: Vital Signs Temp Pulse Resp BP Pulse Ox 36.5 C 52 L 14 129/80 H 93 12/22/16 07:08 12/22/16 08:25 12/22/16 07:08 12/22/16 08:52 12/22/16 08:25 12/21/16 12/22/16 12/23/16 05:59 05:59 05:59 Intake Total 1000 608 406 Output Total 700 Balance 300 608 406 PT 13.8 SEC (12.0-15.0) 12/21/16 06:10 INR 1.07 (0.83-1.16) 12/21/16 06:10 Physical Exam - Physical Exam General Appearance: WD/WN, alert, no apparent distress, obese Respiratory: normal breath sounds, No crackles, No rhonchi, No wheezing Cardiac/Chest: regular rate, rhythm, No edema, No diastolic murmur, No systolic murmur Skin: normal color, warm/dry Neuro/Psych: alert, normal mood/affect, oriented x 3, motor weakness (Right upper extremity with scapular retraction and pro traction otherwise flaccid. Right lower extremity with hip flexion and extension at the knee. Able to stand with physical therapy supporting herself with left hand on the rail and therapist blocking right knee.) ICD10 Worksheet Patient Problems: Problems Problem Status Onset Cerebrovascular accident (CVA) involving right middle cerebral artery territory Acute Left hemiparesis Acute - ICD10 Problem Qualifiers (1) Cerebrovascular accident (CVA) involving right middle cerebral artery territory (2) Left hemiparesis
[2016-12-22] MEDS: CALCIUM CARBONATE 500 MG CHEWABLE TAB PO PRN (15:23)
[2016-12-22] MEDS: PREPARATION H 51 GM CRTUBE PR PRN (15:24)
[2016-12-22] MEDS: ATORVASTATIN CALCIUM 40 MG TAB PO SCH ×2 (19:47→19:48)
[2016-12-22] MEDS: ACETAMINOPHEN 325 MG TAB PO PRN (19:47)
[2016-12-22] MEDS: traZODone 50 MG TAB PO SCH (19:48)
[2016-12-23] MEDS: ALPRAZolam 0.5 MG TAB PO PRN (01:44)
[2016-12-23] MEDS: APIXABAN 5 MG TAB PO SCH ×2 (08:46→20:39)
[2016-12-23] MEDS: FLUoxetine 20 MG CAP PO SCH (08:47)
[2016-12-23] MEDS: FAMOTIDINE 20 MG TAB PO SCH (08:47)
[2016-12-23] MEDS: SENNOSIDES 1 TAB PO SCH ×2 (08:50→20:38)
[2016-12-23] MEDS: METOPROLOL TARTRATE 25 MG TAB PO SCH ×2 (09:05→20:39)
[2016-12-23] MEDS: ENALAPRIL MALEATE 5 MG TAB PO SCH (09:05)
--- NOTE | 2016-12-23 12:54 | SOAPPROG ---
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 Initial functional independence measure 37 on 12/18/2016. She requires maximal assistance of 2 for bed mobility and for sliding board transfers otherwise she is transferred by Prashanth lift. Sitting balance is poor but improving. She has decreased attention an easy fatigue. She is unsafe in the wheelchair as she tends to slide out of it so wears a roll belt when in the chair. Initiated standing today, 12/22/2016. She requires maximum assistance for upper body dressing and total assistance for lower body dressing. Continue physical therapy and occupational therapy to optimize mobility and activities of daily living. * Dysphagia, status post cerebrovascular accident. Poor oral bolus management including discoordination, pocketing L sulcus, and leak from L labial seal. Getting e-stim therapy. Continue Speech and Language Pathology. * Cognitive impairment with decreased executive function which impact problem solving and memory. She has decreased inhibition and and repair skills. * Insomnia and somnolence. Increase trazodone from 50 mg QHS to 75 mg QHS starting 12/23/16; hope to avoid use of alprazolam as it may contribute to confusion and sleepiness in the morning. Was improved with trazodone at HS 50 mg, as well as melatonin 3 mg; melatonin d/c'd after several days. Per report prior to the stroke she was a night owl and often slept in until 10 or 11 in the morning. Shifted morning ADLs as late as possible, 9:00 a.m.. Continue to monitor. * Secondary stroke prophylaxis. Blood pressure control, lipid control, and resumption of anticoagulation starting on December 19, 2016. * Paroxysmal AFib. Stopped warfarin and initiated apixaban 12/21/2016, per patient's request as she does not want repeated blood tests. May return to warfarin if insurance does not cover apixaban. * Hypertension, with metoprolol having been resumed during her hospitalization. Bradycardia of progressively worse, metoprolol changed from 100 mg twice daily to 50 mg twice daily on 12/19/2016; taper further to 25 mg twice daily on 12/21/2016 and to 12.5 mg twice daily on 09/21/2016; continue and enalapril 10 mg q.day initiated on 12/20/2016. Continue to monitor. * Urinary tract infection with symptoms and a suggestive urinalysis, treated with cefuroxime to which E coli was susceptible, and resolved. * Headache. Continue acetaminophen. * Left knee degenerative joint disease with considerable pain. Continue acetaminophen and consider other pain medications if her knee pain interferes with her ability to participate in therapies. * Constipation. Resolved. Continue laxatives. * Gastroesophageal reflux disorder. Continue famotidine and treat constipation. * History of chronic benzodiazepine dependence. Continue alprazolam p.r.n. * Prophylaxis. With hemiparesis she is at elevated risk for deep venous thrombosis. On apixaban and enoxaparin discontinued. Continue famotidine for GERD. No current indication for a proton pump inhibitor. * Doppler ultrasound of lower extremities done 12/18/2016 as nurse found caps tender to palpation. There was no DVT. Intends to return home with to [place], by car; interim discharge to son's home in [place] is possible. Currently very disabled; expect prolonged rehabilitation course. Tentative discharge date of 01/17/17 was set. 12/23/16 13:52 Subjective: Had difficulty attaining sleep last night until she received Xanax out approximately 1 in the morning. Then she was sleepy and confused the morning. She is convinced that her spent the night on the unit floating with the nurses. Otherwise she is without complaints. She denies cough, dyspnea, fevers , chills, dysuria. Objective: Vital Signs Temp Pulse Resp BP Pulse Ox 36.7 C 63 18 112/75 92 12/23/16 06:36 12/23/16 09:01 12/23/16 06:36 12/23/16 09:05 12/23/16 06:36 12/22/16 12/23/16 12/24/16 05:59 05:59 05:59 Intake Total 608 1066 320 Output Total 300 550 Balance 608 766 -230 PT 13.8 SEC (12.0-15.0) 12/21/16 06:10 INR 1.07 (0.83-1.16) 12/21/16 06:10 Physical Exam - Physical Exam General Appearance: WD/WN, alert, no apparent distress, obese Respiratory: normal breath sounds, No crackles, No rhonchi, No wheezing Cardiac/Chest: regular rate, rhythm, No edema, No diastolic murmur, No systolic murmur Skin: normal color, warm/dry Neuro/Psych: alert, normal mood/affect, motor weakness (Left upper extremity flaccid paralysis. Left lower extremity able to abduct and adduct at the hip.) ICD10 Worksheet Patient Problems: Problems Problem Status Onset Cerebrovascular accident (CVA) involving right middle cerebral artery territory Acute Left hemiparesis Acute - ICD10 Problem Qualifiers (1) Cerebrovascular accident (CVA) involving right middle cerebral artery territory (2) Left hemiparesis
[2016-12-23] MEDS ORDERED: MELATONIN 3 MG TAB PO PRN (13:55)
[2016-12-23] MEDS: ATORVASTATIN CALCIUM 40 MG TAB PO SCH (20:38)
[2016-12-23] MEDS: traZODone 50 MG TAB PO SCH (20:39)
[2016-12-23] MEDS: CALCIUM CARBONATE 500 MG CHEWABLE TAB PO PRN (21:17)
--- NOTE | 2016-12-24 08:21 | SOAPPROG ---
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 Recently had addition of antihypertensives, continue to monitor. Additionally, she endorses suprapubic pain, has suprapubic tenderness, and endorses pain on urination. Checking urinalysis. Dense left-sided hemiparesis, working with therapies, continue to monitor. Has some improvement in left upper limb strength on finger flexion. Continue rehabilitation plan below. Ordering resting splint in bed on the left foot to prevent ankle plantar flexion contracture. A total of 25 minutes was spent on the floor in the care of the patient, the majority of which was spent in the counseling and coordination of care regarding history of urinary tract infections and history of blood pressure management strategies. * Left hemiparesis and sensory loss, impairments in mobility and self-care. Initial functional independence measure 37 on 12/18/2016. She requires maximal assistance of 2 for bed mobility and for sliding board transfers otherwise she is transferred by Prashanth lift. Sitting balance is poor but improving. She has decreased attention an easy fatigue. She is unsafe in the wheelchair as she tends to slide out of it so wears a roll belt when in the chair. Initiated standing today, 12/22/2016. She requires maximum assistance for upper body dressing and total assistance for lower body dressing. Continue physical therapy and occupational therapy to optimize mobility and activities of daily living. Left-sided resting splint in bed on the lower extremity. * Dysphagia, status post cerebrovascular accident. Poor oral bolus management including discoordination, pocketing L sulcus, and leak from L labial seal. Getting e-stim therapy. Continue Speech and Language Pathology. * Cognitive impairment with decreased executive function which impact problem solving and memory. She has decreased inhibition and and repair skills. * Insomnia and somnolence. Increase trazodone from 50 mg QHS to 75 mg QHS starting 12/23/16; hope to avoid use of alprazolam as it may contribute to confusion and sleepiness in the morning. Was improved with trazodone at HS 50 mg, as well as melatonin 3 mg; melatonin d/c'd after several days. Per report prior to the stroke she was a night owl and often slept in until 10 or 11 in the morning. Shifted morning ADLs as late as possible, 9:00 a.m.. Continue to monitor. * Secondary stroke prophylaxis. Blood pressure control, lipid control, and resumption of anticoagulation starting on December 19, 2016. * Paroxysmal AFib. Stopped warfarin and initiated apixaban 12/21/2016, per patient's request as she does not want repeated blood tests. May return to warfarin if insurance does not cover apixaban. * Hypertension, with metoprolol having been resumed during her hospitalization. Bradycardia of progressively worse, metoprolol changed from 100 mg twice daily to 50 mg twice daily on 12/19/2016; taper further to 25 mg twice daily on 12/21/2016 and to 12.5 mg twice daily on 09/21/2016; continue and enalapril 10 mg q.day initiated on 12/20/2016. Continue to monitor. * Urinary tract infection with symptoms and a suggestive urinalysis, treated with cefuroxime to which E coli was susceptible, and resolved. * Headache. Continue acetaminophen. * Left knee degenerative joint disease with considerable pain. Continue acetaminophen and consider other pain medications if her knee pain interferes with her ability to participate in therapies. * Constipation. Resolved. Continue laxatives. * Gastroesophageal reflux disorder. Continue famotidine and treat constipation. * History of chronic benzodiazepine dependence. Continue alprazolam p.r.n. * Prophylaxis. With hemiparesis she is at elevated risk for deep venous thrombosis. On apixaban and enoxaparin discontinued. Continue famotidine for GERD. No current indication for a proton pump inhibitor. * Doppler ultrasound of lower extremities done 12/18/2016 as nurse found caps tender to palpation. There was no DVT. Intends to return home with to [place], by car; interim discharge to son's home in [place] is possible. Currently very disabled; expect prolonged rehabilitation course. Tentative discharge date of 01/17/17 was set. 12/24/16 08:17 12/24/16 08:22 Subjective: Chief complaint: Hypertension No acute events overnight. Patient is most concerned about high blood pressure today. Systolics is 130, she had recently started new antihypertensives. She endorsed that she had a history of renal artery stenting and kidney failure and she is quite concerned about keeping her blood pressure under control. She also endorses urinary frequency, suprapubic pain, and has suprapubic tenderness on exam. She has not had a Thrasher recently. She has had recent possible urinary tract infection status post treatment. Therapists have no particular concerns today, patient states she was visiting her son in [place]. No new shortness of breath or chest pain, no new numbness, tingling, or new weakness. Objective: Vital Signs Temp Pulse Resp BP Pulse Ox 37.1 C 56 L 16 130/53 H 92 12/24/16 06:22 12/24/16 06:22 12/24/16 06:22 12/24/16 06:22 12/24/16 06:22 12/23/16 12/24/16 12/25/16 05:59 05:59 05:59 Intake Total 1066 780 Output Total 300 1050 400 Balance 766 -270 -400 PT 13.8 SEC (12.0-15.0) 12/21/16 06:10 INR 1.07 (0.83-1.16) 12/21/16 06:10 Physical Exam - Physical Exam General Appearance: WD/WN, no apparent distress, obese, No alert (Sleepy) EENT: No scleral icterus (R), No scleral icterus (L) Respiratory: lungs clear, normal breath sounds, No respiratory distress, No accessory muscle use Cardiac/Chest: regular rate, rhythm, No edema Abdomen: non-tender, soft, No distended, No guarding Skin: normal color, warm/dry, No cyanosis Extremities: No pedal edema, No swelling Neuro/Psych: normal mood/affect, motor weakness (Dense left-sided hemiparesis, had finger flexion approximately 1/5 on the left), sensory deficit (Unable to feel on the left lower limb, but endorsed feeling in both the left upper and lower limb at 1 point during the exam. Slightly unclear and conflicting exam. Plan to re-examine when she is more alert), No alert (Sleepy) ICD10 Worksheet Patient Problems: Problems Problem Status Onset Cerebrovascular accident (CVA) involving right middle cerebral artery territory Acute Left hemiparesis Acute
[2016-12-24] MEDS: ENALAPRIL MALEATE 5 MG TAB PO SCH (09:03)
[2016-12-24] MEDS: FAMOTIDINE 20 MG TAB PO SCH (09:03)
[2016-12-24] MEDS: FLUoxetine 20 MG CAP PO SCH (09:03)
[2016-12-24] MEDS: APIXABAN 5 MG TAB PO SCH ×2 (09:03→21:48)
[2016-12-24] MEDS: METOPROLOL TARTRATE 25 MG TAB PO SCH ×2 (09:04→19:59)
[2016-12-24] MEDS: SENNOSIDES 1 TAB PO SCH ×2 (09:05→19:59)
[2016-12-24 19:40] LABS: COLOR YELLOW; LEUKOCYTE ESTERASE,URINE 1+ (NEGATIVE); NITRITE,URINE NEGATIVE (NEGATIVE)
[2016-12-24 19:52] LABS: BACTERIA 1+ /hpf (NONE SEEN); MUCUS TRACE /lpf (NONE-1+); WBC,URINE 15-25 /hpf (0-3)
[2016-12-24] MEDS: CALCIUM CARBONATE 500 MG CHEWABLE TAB PO PRN (19:58)
[2016-12-24] MEDS: ATORVASTATIN CALCIUM 40 MG TAB PO SCH (19:59)
[2016-12-24] MEDS: traZODone 50 MG TAB PO SCH (19:59)
[2016-12-24] MEDS: PREPARATION H 51 GM CRTUBE PR PRN (20:11)
[2016-12-25] MEDS: FAMOTIDINE 20 MG TAB PO SCH (08:28)
[2016-12-25] MEDS: SENNOSIDES 1 TAB PO SCH ×2 (08:28→20:20)
[2016-12-25] MEDS: APIXABAN 5 MG TAB PO SCH ×2 (08:28→20:21)
[2016-12-25] MEDS: ENALAPRIL MALEATE 5 MG TAB PO SCH (08:28)
[2016-12-25] MEDS: FLUoxetine 20 MG CAP PO SCH (08:28)
[2016-12-25] MEDS: METOPROLOL TARTRATE 25 MG TAB PO SCH ×2 (08:30→20:19)
[2016-12-25] MEDS ORDERED: MODAFINIL 100 MG TAB PO ONE (12:00)
--- NOTE | 2016-12-25 12:14 | SOAPPROG ---
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 Initial functional independence measure 37 on 12/18/2016; improved to 39 as of 12/25/2016. Sliding board transfers to right with minimal assist of 2, to left with moderate to maximal assistance of 2. Bed mobility moderate to maximal assistance of 2. Maximal assist with wheelchair mobility due to neglect of left side. Grooming and hygiene seated with max assistance to maintain seated balance. Upper body dressing moderate to max assist, lower body max to total assist bathing with total assist. Left visual field cut. Continue physical therapy and occupational therapy to optimize mobility and activities of daily living. * Dysphagia, status post cerebrovascular accident. Receiving 80 stem therapy for poor oral bolus management including discoordination, pocketing L sulcus, and leak from L labial seal. Getting e-stim therapy. Continue Speech and Language Pathology. * Cognitive impairment with decreased executive function which impact problem solving and memory. She has decreased inhibition and and repair skills. She is stimulus bound and does not easily break attention to attend to another task. * Insomnia and somnolence. Increase trazodone from 50 mg QHS to 75 mg QHS starting 12/23/16; hope to avoid use of alprazolam as it may contribute to confusion and sleepiness in the morning. Was improved with trazodone at HS 50 mg, as well as melatonin 3 mg; melatonin d/c'd after several days. Per report prior to the stroke she was a night owl and often slept in until 10 or 11 in the morning. Shifted morning ADLs as late as possible, 9:00 a.m.. Continue to monitor. * Hypertension, with metoprolol having been resumed during her hospitalization. Bradycardia of progressively worse, metoprolol changed from 100 mg twice daily to 50 mg twice daily on 12/19/2016; taper further to 25 mg twice daily on 12/21/2016 and to 12.5 mg twice daily on 09/21/2016; continue and enalapril 10 mg q.day initiated on 12/20/2016. Continue to monitor. * Urinary tract infection with symptoms and a suggestive urinalysis, treated with cefuroxime to which E coli was susceptible, and resolved. Recurrent symptoms and positive urinalysis 12/25/2016. Ordered nitrofurantoin 100 mg twice daily for 7 days. Chronic/stable conditions: * Secondary stroke prophylaxis. Blood pressure control, lipid control, and resumption of anticoagulation starting on December 19, 2016. * Paroxysmal AFib. Stopped warfarin and initiated apixaban 12/21/2016, per patient's request as she does not want repeated blood tests. reports 60 dollar monthly co-pay for apixaban, which she can afford. * Headache. Continue acetaminophen. * Left knee degenerative joint disease with considerable pain. Continue acetaminophen and consider other pain medications if her knee pain interferes with her ability to participate in therapies. * Constipation. Resolved. Continue laxatives. * Gastroesophageal reflux disorder. Continue famotidine and treat constipation. * History of chronic benzodiazepine dependence. Continue alprazolam p.r.n. * Prophylaxis. With hemiparesis she is at elevated risk for deep venous thrombosis. On apixaban and enoxaparin discontinued. Continue famotidine for GERD. No current indication for a proton pump inhibitor. * Doppler ultrasound of lower extremities done 12/18/2016 as nurse found caps tender to palpation. There was no DVT. Attendant staffing, 15 minutes. Discussed with case management, pharmacy, dietitian, nursing, PT, OT, SALES AND MERCHANDISING REPRESENTATIVE. Very disabled, minimal progress. fishing manager to discuss with options regarding [facility] facility discharge either [place] or [place]. Intends to return home with to [place], by car; this seems unlikely for a very long time. Further discussion planned at family meeting next week. Continue tentative discharge date of . 12/25/16 12:02 Subjective: Complains of burning pain with urination. Reports that she had an episode of sweats overnight but also says that she usually feels cold and had too many blankets on. Otherwise denies fevers or chills. Not in pain. No cough or dyspnea. Objective: Vital Signs Temp Pulse Resp BP Pulse Ox 37.1 C 67 16 128/79 H 91 L 12/25/16 06:24 12/25/16 08:30 12/25/16 06:24 12/25/16 08:30 12/25/16 06:24 12/24/16 12/25/16 12/26/16 05:59 05:59 05:59 Intake Total 780 594 354 Output Total 1050 950 Balance -270 -356 354 PT 13.8 SEC (12.0-15.0) 12/21/16 06:10 INR 1.07 (0.83-1.16) 12/21/16 06:10 - Time Spent With Patient Time Spent With Patient: Greater than 35 minutes floor time today, including more than 50% of time in coordination of care during staffing meeting, and counseling patient. Physical Exam - Physical Exam General Appearance: WD/WN, alert, no apparent distress, obese Respiratory: normal breath sounds, No crackles, No rhonchi, No wheezing Cardiac/Chest: regular rate, rhythm, No edema Skin: normal color, warm/dry Neuro/Psych: alert, normal mood/affect, oriented x 3, motor weakness (Left upper and lower extremities flaccid paralysis), sensory deficit (No sensation to light touch left upper and lower extremities) ICD10 Worksheet Patient Problems: Problems Problem Status Onset Cerebrovascular accident (CVA) involving right middle cerebral artery territory Acute Left hemiparesis Acute - ICD10 Problem Qualifiers (1) Cerebrovascular accident (CVA) involving right middle cerebral artery territory (2) Left hemiparesis
[2016-12-25] MEDS: NITROFURANTOIN MACROBID 100 MG CAP PO SCH ×2 (12:59→20:21)
[2016-12-25] MEDS: traZODone 50 MG TAB PO SCH (20:19)
[2016-12-25] MEDS: ATORVASTATIN CALCIUM 40 MG TAB PO SCH (20:20)
[2016-12-26] MEDS: APIXABAN 5 MG TAB PO SCH ×2 (09:45→20:13)
[2016-12-26] MEDS: METOPROLOL TARTRATE 25 MG TAB PO SCH ×2 (09:46→20:14)
[2016-12-26] MEDS: MODAFINIL 100 MG TAB PO SCH (09:46)
[2016-12-26] MEDS: SENNOSIDES 1 TAB PO SCH ×2 (09:51→20:14)
[2016-12-26] MEDS: FAMOTIDINE 20 MG TAB PO SCH (09:51)
[2016-12-26] MEDS: NITROFURANTOIN MACROBID 100 MG CAP PO SCH ×2 (09:51→20:13)
[2016-12-26] MEDS: FLUoxetine 20 MG CAP PO SCH (09:51)
[2016-12-26] MEDS: ENALAPRIL MALEATE 5 MG TAB PO SCH (09:54)
--- NOTE | 2016-12-26 10:50 | HOSPPROG ---
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 Initial functional independence measure 37 on 12/18/2016; improved to 39 as of 12/25/2016. Sliding board transfers to right with minimal assist of 2, to left with moderate to maximal assistance of 2. Bed mobility moderate to maximal assistance of 2. Maximal assist with wheelchair mobility due to neglect of left side. Grooming and hygiene seated with max assistance to maintain seated balance. Upper body dressing moderate to max assist, lower body max to total assist bathing with total assist. Left visual field cut. Continue physical therapy and occupational therapy to optimize mobility and activities of daily living. * Dysphagia, status post cerebrovascular accident. Receiving 80 stem therapy for poor oral bolus management including discoordination, pocketing L sulcus, and leak from L labial seal. Getting e-stim therapy. Continue Speech and Language Pathology. * Cognitive impairment with decreased executive function which impact problem solving and memory. She has decreased inhibition and and repair skills. She is stimulus bound and does not easily break attention to attend to another task. * Insomnia and somnolence. Increase trazodone from 50 mg QHS to 75 mg QHS starting 12/23/16; hope to avoid use of alprazolam as it may contribute to confusion and sleepiness in the morning. Was improved with trazodone at HS 50 mg, as well as melatonin 3 mg; melatonin d/c'd after several days. Per report prior to the stroke she was a night owl and often slept in until 10 or 11 in the morning. Shifted morning ADLs as late as possible, 9:00 a.m.. Continue to monitor. Will try adding back melatonin at lower dose. * Hypertension, with metoprolol having been resumed during her hospitalization. Bradycardia of progressively worse, metoprolol changed from 100 mg twice daily to 50 mg twice daily on 12/19/2016; taper further to 25 mg twice daily on 12/21/2016 and to 12.5 mg twice daily on 09/21/2016; continue and enalapril 10 mg q.day initiated on 12/20/2016. Continue to monitor. * Urinary tract infection with symptoms and a suggestive urinalysis, treated with cefuroxime to which E coli was susceptible, and resolved. Recurrent symptoms and positive urinalysis 12/25/2016. Ordered nitrofurantoin 100 mg twice daily for 7 days. Chronic/stable conditions: * Secondary stroke prophylaxis. Blood pressure control, lipid control, and resumption of anticoagulation starting on December 19, 2016. * Paroxysmal AFib. Stopped warfarin and initiated apixaban 12/21/2016, per patient's request as she does not want repeated blood tests. reports 60 dollar monthly co-pay for apixaban, which she can afford. * Headache. Continue acetaminophen. * Left knee degenerative joint disease with considerable pain. Continue acetaminophen and consider other pain medications if her knee pain interferes with her ability to participate in therapies. * Constipation. Resolved. Continue laxatives. * Gastroesophageal reflux disorder. Continue famotidine and treat constipation. * History of chronic benzodiazepine dependence. Continue alprazolam p.r.n. * Prophylaxis. With hemiparesis she is at elevated risk for deep venous thrombosis. On apixaban and enoxaparin discontinued. Continue famotidine for GERD. No current indication for a proton pump inhibitor. * Doppler ultrasound of lower extremities done 12/18/2016 as nurse found caps tender to palpation. There was no DVT. Subjective: More awake this morning per therapy. Seems to be able to participate more. She is quite worried about her blood pressure although there is no record of elevation overnight Objective: Vital Signs Temp Pulse Resp BP Pulse Ox 36.7 C 60 16 140/78 H 92 12/26/16 06:45 12/26/16 09:46 12/26/16 06:45 12/26/16 09:54 12/26/16 06:45 12/25/16 12/26/16 12/27/16 05:59 05:59 05:59 Intake Total 594 732 Output Total 950 350 Balance -356 382 PT 13.8 SEC (12.0-15.0) 12/21/16 06:10 INR 1.07 (0.83-1.16) 12/21/16 06:10 - Physical Exam Constitutional: no apparent distress, appears nourished, not in pain Eyes: anicteric sclera Cardiovascular: regular rate and rhythym Respiratory: no respiratory distress, no rales or rhonchi, clear to auscultation Neurologic: other (Dense left leta paresis) Psychiatric: interacting appropriately, not anxious, not encephalopathic, thought process linear ICD10 Worksheet Patient Problems: Problems Problem Status Onset Cerebrovascular accident (CVA) involving right middle cerebral artery territory Acute Left hemiparesis Acute
[2016-12-26] MEDS: MELATONIN 3 MG TAB PO SCH (20:13)
[2016-12-26] MEDS: traZODone 50 MG TAB PO SCH (20:14)
[2016-12-26] MEDS: ATORVASTATIN CALCIUM 40 MG TAB PO SCH (20:14)
[2016-12-26] MEDS: ALPRAZolam 0.5 MG TAB PO PRN (21:30)
[2016-12-27] MEDS: ENALAPRIL MALEATE 5 MG TAB PO SCH (09:40)
[2016-12-27] MEDS: APIXABAN 5 MG TAB PO SCH ×2 (09:40→21:31)
[2016-12-27] MEDS: FAMOTIDINE 20 MG TAB PO SCH (09:40)
[2016-12-27] MEDS: NITROFURANTOIN MACROBID 100 MG CAP PO SCH ×2 (09:41→21:30)
[2016-12-27] MEDS: MODAFINIL 100 MG TAB PO SCH (09:41)
[2016-12-27] MEDS: SENNOSIDES 1 TAB PO SCH ×2 (09:41→21:30)
[2016-12-27] MEDS: METOPROLOL TARTRATE 25 MG TAB PO SCH ×2 (09:41→21:32)
[2016-12-27] MEDS: FLUoxetine 20 MG CAP PO SCH (09:41)
[2016-12-27] MEDS: PREPARATION H 51 GM CRTUBE PR PRN (11:50)
--- NOTE | 2016-12-27 14:00 | SOAPPROG ---
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 Initial functional independence measure 37 on 12/18/2016; improved to 39 as of 12/25/2016. Sliding board transfers to right with minimal assist of 2, to left with moderate to maximal assistance of 2. Bed mobility moderate to maximal assistance of 2. Maximal assist with wheelchair mobility due to neglect of left side. Grooming and hygiene seated with max assistance to maintain seated balance. Upper body dressing moderate to max assist, lower body max to total assist bathing with total assist. Left visual field cut. Continue physical therapy and occupational therapy to optimize mobility and activities of daily living. * Dysphagia, status post cerebrovascular accident. Receiving 80 stem therapy for poor oral bolus management including discoordination, pocketing L sulcus, and leak from L labial seal. Getting e-stim therapy. Continue Speech and Language Pathology. * Cognitive impairment with decreased executive function which impact problem solving and memory. She has decreased inhibition and and repair skills. She is stimulus bound and does not easily break attention to attend to another task. * Insomnia and somnolence. Increase trazodone from 50 mg QHS to 75 mg QHS starting 12/23/16; hope to avoid use of alprazolam as it may contribute to confusion and sleepiness in the morning. Was improved with trazodone at HS 50 mg, as well as melatonin 3 mg; melatonin d/c'd after several days. Per report prior to the stroke she was a night owl and often slept in until 10 or 11 in the morning. Shifted morning ADLs as late as possible, 9:00 a.m.. Continue to monitor. Will try adding back melatonin at lower dose. * Hypertension, with metoprolol having been resumed during her hospitalization. Bradycardia of progressively worse, metoprolol changed from 100 mg twice daily to 50 mg twice daily on 12/19/2016; taper further to 25 mg twice daily on 12/21/2016 and to 12.5 mg twice daily on 09/21/2016; continue and enalapril 10 mg q.day initiated on 12/20/2016. Continue to monitor. * Urinary tract infection with symptoms and a suggestive urinalysis, treated with cefuroxime to which E coli was susceptible, and resolved. Recurrent symptoms and positive urinalysis 12/25/2016. Ordered nitrofurantoin 100 mg twice daily for 7 days. Chronic/stable conditions: * Secondary stroke prophylaxis. Blood pressure control, lipid control, and resumption of anticoagulation starting on December 19, 2016. * Paroxysmal AFib. Stopped warfarin and initiated apixaban 12/21/2016, per patient's request as she does not want repeated blood tests. reports 60 dollar monthly co-pay for apixaban, which she can afford. * Headache. Continue acetaminophen. * Left knee degenerative joint disease with considerable pain. Continue acetaminophen and consider other pain medications if her knee pain interferes with her ability to participate in therapies. * Constipation. Resolved. Continue laxatives. * Gastroesophageal reflux disorder. Continue famotidine and treat constipation. * History of chronic benzodiazepine dependence. Continue alprazolam p.r.n. * Prophylaxis. With hemiparesis she is at elevated risk for deep venous thrombosis. On apixaban and enoxaparin discontinued. Continue famotidine for GERD. No current indication for a proton pump inhibitor. * Doppler ultrasound of lower extremities done 12/18/2016 as nurse found caps tender to palpation. There was no DVT. Subjective: Had somewhat of a headache last night. has been more awake and has been working with PT more actively Objective: Vital Signs Temp Pulse Resp BP Pulse Ox 37.0 C 69 18 120/80 92 12/27/16 06:35 12/27/16 09:41 12/27/16 06:35 12/27/16 09:41 12/27/16 06:35 12/26/16 12/27/16 12/28/16 05:59 05:59 05:59 Intake Total 732 630 120 Output Total 350 800 Balance 382 -170 120 PT 13.8 SEC (12.0-15.0) 12/21/16 06:10 INR 1.07 (0.83-1.16) 12/21/16 06:10 Physical Exam - Physical Exam General Appearance: WD/WN, alert Respiratory: No respiratory distress Cardiac/Chest: regular rate, rhythm, No edema, No diastolic murmur, No systolic murmur Abdomen: non-tender, soft Neuro/Psych: alert ICD10 Worksheet Patient Problems: Problems Problem Status Onset Cerebrovascular accident (CVA) involving right middle cerebral artery territory Acute Left hemiparesis Acute
[2016-12-27] MEDS: CALCIUM CARBONATE 500 MG CHEWABLE TAB PO PRN (18:42)
[2016-12-27] MEDS: traZODone 50 MG TAB PO SCH (21:31)
[2016-12-27] MEDS: ATORVASTATIN CALCIUM 40 MG TAB PO SCH (21:31)
[2016-12-27] MEDS: ALPRAZolam 0.5 MG TAB PO PRN (22:00)
[2016-12-27] MEDS: MELATONIN 3 MG TAB PO SCH (22:51)
[2016-12-28] MEDS: METOPROLOL TARTRATE 25 MG TAB PO SCH ×2 (08:57→20:48)
[2016-12-28] MEDS: APIXABAN 5 MG TAB PO SCH ×2 (08:58→20:49)
[2016-12-28] MEDS: MODAFINIL 100 MG TAB PO SCH (08:59)
[2016-12-28] MEDS: ENALAPRIL MALEATE 5 MG TAB PO SCH (09:00)
[2016-12-28] MEDS: FLUoxetine 20 MG CAP PO SCH (09:01)
[2016-12-28] MEDS: FAMOTIDINE 20 MG TAB PO SCH (09:01)
[2016-12-28] MEDS: NITROFURANTOIN MACROBID 100 MG CAP PO SCH ×2 (09:02→20:49)
[2016-12-28] MEDS: SENNOSIDES 1 TAB PO SCH ×2 (09:03→20:49)
[2016-12-28] MEDS: PREPARATION H 51 GM CRTUBE PR PRN ×2 (11:10→17:40)
--- NOTE | 2016-12-28 11:55 | SOAPPROG ---
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 Initial functional independence measure 37 on 12/18/2016; improved to 39 as of 12/25/2016. Sliding board transfers to right with minimal assist of 2, to left with moderate to maximal assistance of 2. Bed mobility moderate to maximal assistance of 2. Maximal assist with wheelchair mobility due to neglect of left side. Grooming and hygiene seated with max assistance to maintain seated balance. Upper body dressing moderate to max assist, lower body max to total assist bathing with total assist. Left visual field cut. Continue physical therapy and occupational therapy to optimize mobility and activities of daily living. ON FLUOXETINE FOR MOTOR RECOVERY. * MILD LEFT SHOULDER SUBLUXATION-MONITOR FOR WORSENING LEFT SHOULDER PAIN. MAY BENEFIT FROM FES TO DECREASE SUBLUXATION. * Dysphagia, status post cerebrovascular accident. Receiving 80 stem therapy for poor oral bolus management including discoordination, pocketing L sulcus, and leak from L labial seal. Getting e-stim therapy. Continue Speech and Language Pathology. * Cognitive impairment with decreased executive function which impact problem solving and memory. She has decreased inhibition and and repair skills. She is stimulus bound and does not easily break attention to attend to another task. * Insomnia and somnolence. Increase trazodone from 50 mg QHS to 75 mg QHS starting 12/23/16; hope to avoid use of alprazolam as it may contribute to confusion and sleepiness in the morning. Was improved with trazodone at HS 50 mg, as well as melatonin 3 mg; melatonin d/c'd after several days. Per report prior to the stroke she was a night owl and often slept in until 10 or 11 in the morning. Shifted morning ADLs as late as possible, 9:00 a.m.. Continue to monitor. Will try adding back melatonin at lower dose. * Hypertension. BP THIS AM 124/60 with metoprolol having been resumed during her hospitalization. Bradycardia-PULSE THIS AM WAS 72. of progressively worse , metoprolol changed from 100 mg twice daily to 50 mg twice daily on 12/19/2016; taper further to 25 mg twice daily on 12/21/2016 and to 12.5 mg twice ,enalapril 10 mg q.day initiated on 12/20/2016. Continue to monitor. CONSIDER D/C ING METOPROLOL * Urinary tract infection with symptoms and a suggestive urinalysis, treated with cefuroxime to which E coli was susceptible, and resolved. Recurrent symptoms and positive urinalysis 12/25/2016. Ordered nitrofurantoin 100 mg twice daily for 7 days. Chronic/stable conditions: * Secondary stroke prophylaxis. Blood pressure control, lipid control, and resumption of anticoagulation starting on December 19, 2016. * Paroxysmal AFib. Stopped warfarin and initiated apixaban 12/21/2016, per patient's request as she does not want repeated blood tests. reports 60 dollar monthly co-pay for apixaban, which she can afford. * Headache. Continue acetaminophen. * Left knee degenerative joint disease with considerable pain. Continue acetaminophen and consider other pain medications if her knee pain interferes with her ability to participate in therapies. * Constipation. Resolved. Continue laxatives. * Gastroesophageal reflux disorder. Continue famotidine and treat constipation. * History of chronic benzodiazepine dependence. Continue alprazolam p.r.n. * Prophylaxis. With hemiparesis she is at elevated risk for deep venous thrombosis. On apixaban and enoxaparin discontinued. Continue famotidine for GERD. No current indication for a proton pump inhibitor. * Doppler ultrasound of lower extremities done 12/18/2016 as nurse found caps tender to palpation. There was no DVT. Plan: 12/28/16 11:55 Subjective: NO C/O THIS AM Objective: Vital Signs Temp Pulse Resp BP Pulse Ox 36.4 C 72 18 124/60 H 91 L 12/28/16 07:58 12/28/16 08:57 12/28/16 07:58 12/28/16 09:00 12/28/16 07:58 12/27/16 12/28/16 12/29/16 05:59 05:59 05:59 Intake Total 630 1050 360 Output Total 800 800 650 Balance -170 250 -290 PT 13.8 SEC (12.0-15.0) 12/21/16 06:10 INR 1.07 (0.83-1.16) 12/21/16 06:10 Physical Exam - Physical Exam General Appearance: alert, obese Respiratory: lungs clear Cardiac/Chest: edema (TRACE LE EDEMA) Abdomen: non-tender, soft Extremities: No swelling, No Kerri's sign Neuro/Psych: alert, motor weakness (LEFT UPPER GREATER THAN LOWER EXTREMITY WEAKNESS. LEFT SHOULDER TAPED. MILD SHOULDER SUBLUXATION NOTED. ) ICD10 Worksheet Patient Problems: Problems Problem Status Onset Cerebrovascular accident (CVA) involving right middle cerebral artery territory Acute Left hemiparesis Acute
[2016-12-28] MEDS: ATORVASTATIN CALCIUM 40 MG TAB PO SCH (20:48)
[2016-12-28] MEDS: MELATONIN 3 MG TAB PO SCH (20:49)
[2016-12-28] MEDS: ALPRAZolam 0.5 MG TAB PO PRN (20:49)
[2016-12-28] MEDS: traZODone 50 MG TAB PO SCH (20:50)
[2016-12-29] MEDS: PREPARATION H 51 GM CRTUBE PR PRN (07:53)
[2016-12-29] MEDS: MODAFINIL 100 MG TAB PO SCH (08:47)
[2016-12-29] MEDS: NITROFURANTOIN MACROBID 100 MG CAP PO SCH ×2 (08:47→20:02)
[2016-12-29] MEDS: FAMOTIDINE 20 MG TAB PO SCH (08:47)
[2016-12-29] MEDS: FLUoxetine 20 MG CAP PO SCH (08:47)
[2016-12-29] MEDS: APIXABAN 5 MG TAB PO SCH ×2 (08:47→20:01)
[2016-12-29] MEDS: METOPROLOL TARTRATE 25 MG TAB PO SCH ×2 (08:54→20:01)
[2016-12-29] MEDS: ENALAPRIL MALEATE 5 MG TAB PO SCH (09:00)
[2016-12-29] MEDS: SENNOSIDES 1 TAB PO SCH ×2 (09:02→20:01)
--- NOTE | 2016-12-29 11:09 | SOAPPROG ---
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 Initial functional independence measure 37 on 12/18/2016; improved to 39 as of 12/25/2016. Sliding board transfers to right with minimal assist of 2, to left with moderate to maximal assistance of 2. Bed mobility moderate to maximal assistance of 2. Maximal assist with wheelchair mobility due to neglect of left side. Grooming and hygiene seated with max assistance to maintain seated balance. Upper body dressing moderate to max assist, lower body max to total assist bathing with total assist. Left visual field cut. Continue physical therapy and occupational therapy to optimize mobility and activities of daily living. ON FLUOXETINE FOR MOTOR RECOVERY. * MILD LEFT SHOULDER SUBLUXATION-MONITOR FOR WORSENING LEFT SHOULDER PAIN. MAY BENEFIT FROM FES TO DECREASE SUBLUXATION. * Dysphagia, status post cerebrovascular accident. Receiving 80 stem therapy for poor oral bolus management including discoordination, pocketing L sulcus, and leak from L labial seal. Getting e-stim therapy. Continue Speech and Language Pathology. * Cognitive impairment with decreased executive function which impact problem solving and memory. She has decreased inhibition and and repair skills. She is stimulus bound and does not easily break attention to attend to another task. * Insomnia and somnolence. SHE IS C/O POOR SLEEP. Increase trazodone from 50 mg QHS to 75 mg QHS starting 12/23/16; hope to avoid use of alprazolam as it may contribute to confusion and sleepiness in the morning. Was improved with trazodone at HS 50 mg, as well as melatonin 3 mg; melatonin d/c'd after several days. Per report prior to the stroke she was a night owl and often slept in until 10 or 11 in the morning. Shifted morning ADLs as late as possible, 9:00 a.m.. Continue to monitor. Will try adding back melatonin at lower dose. * Hypertension. BP THIS AM144/74 with metoprolol having been resumed during her hospitalization. Bradycardia-PULSE THIS AM WAS 72. of progressively worse , metoprolol changed from 100 mg twice daily to 50 mg twice daily on 12/19/2016; taper further to 25 mg twice daily on 12/21/2016 and to 12.5 mg twice ,enalapril 10 mg q.day initiated on 12/20/2016. Continue to monitor. CONSIDER D/C ING METOPROLOL * Urinary tract infection with symptoms and a suggestive urinalysis, treated with cefuroxime to which E coli was susceptible, and resolved. Recurrent symptoms and positive urinalysis 12/25/2016. Ordered nitrofurantoin 100 mg twice daily for 7 days. Chronic/stable conditions: * Secondary stroke prophylaxis. Blood pressure control, lipid control, and resumption of anticoagulation starting on December 19, 2016. * Paroxysmal AFib. Stopped warfarin and initiated apixaban 12/21/2016, per patient's request as she does not want repeated blood tests. reports 60 dollar monthly co-pay for apixaban, which she can afford. * Headache. Continue acetaminophen. * Left knee degenerative joint disease with considerable pain. Continue acetaminophen and consider other pain medications if her knee pain interferes with her ability to participate in therapies. * Constipation. Resolved. Continue laxatives. * Gastroesophageal reflux disorder. Continue famotidine and treat constipation. * History of chronic benzodiazepine dependence. Continue alprazolam p.r.n. * Prophylaxis. With hemiparesis she is at elevated risk for deep venous thrombosis. On apixaban and enoxaparin discontinued. Continue famotidine for GERD. No current indication for a proton pump inhibitor. * Doppler ultrasound of lower extremities done 12/18/2016 as nurse found caps tender to palpation. There was no DVT. Plan: 12/28/16 11:55 12/29/16 11:11 Subjective: sHE C/O FEELING FATIGUED Objective: Vital Signs Temp Pulse Resp BP Pulse Ox 36.4 C 66 16 144/74 H 90 L 12/29/16 07:09 12/29/16 08:54 12/29/16 07:09 12/29/16 09:00 12/29/16 07:09 12/28/16 12/29/16 12/30/16 05:59 05:59 05:59 Intake Total 1050 700 270 Output Total 800 750 325 Balance 250 -50 -55 PT 13.8 SEC (12.0-15.0) 12/21/16 06:10 INR 1.07 (0.83-1.16) 12/21/16 06:10 Physical Exam - Physical Exam General Appearance: WD/WN, alert, other (DEPRESSDED AFFECT) Respiratory: chest non-tender, lungs clear, normal breath sounds Abdomen: normal bowel sounds, non-tender Skin: normal color, warm/dry Neuro/Psych: motor weakness (DENSE LUE,LLE HEMIPARESIS WITH ABILITY TO ACTIVIATE LEFT HIP FLEXORS) ICD10 Worksheet Patient Problems: Problems Problem Status Onset Cerebrovascular accident (CVA) involving right middle cerebral artery territory Acute Left hemiparesis Acute
[2016-12-29] MEDS: ATORVASTATIN CALCIUM 40 MG TAB PO SCH (20:01)
[2016-12-29] MEDS: traZODone 50 MG TAB PO SCH (20:01)
[2016-12-29] MEDS: ALPRAZolam 0.5 MG TAB PO PRN (20:02)
[2016-12-29] MEDS: MELATONIN 3 MG TAB PO SCH (20:02)
[2016-12-30] MEDS: FLUoxetine 20 MG CAP PO SCH (08:35)
[2016-12-30] MEDS: APIXABAN 5 MG TAB PO SCH ×2 (08:35→20:01)
[2016-12-30] MEDS: FAMOTIDINE 20 MG TAB PO SCH (08:35)
[2016-12-30] MEDS: MODAFINIL 100 MG TAB PO SCH (08:36)
[2016-12-30] MEDS: ENALAPRIL MALEATE 5 MG TAB PO SCH (08:40)
[2016-12-30] MEDS: METOPROLOL TARTRATE 25 MG TAB PO SCH ×2 (08:41→20:01)
[2016-12-30] MEDS: SENNOSIDES 1 TAB PO SCH ×2 (08:43→20:03)
[2016-12-30] MEDS: NITROFURANTOIN MACROBID 100 MG CAP PO SCH ×2 (08:43→20:01)
--- NOTE | 2016-12-30 14:36 | SOAPPROG ---
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 Initial functional independence measure 37 on 12/18/2016; improved to 39 as of 12/25/2016. Sliding board transfers to right with minimal assist of 2, to left with moderate to maximal assistance of 2. Bed mobility moderate to maximal assistance of 2. Maximal assist with wheelchair mobility due to neglect of left side. Grooming and hygiene seated with max assistance to maintain seated balance. Upper body dressing moderate to max assist, lower body max to total assist bathing with total assist. Left visual field cut. Continue physical therapy and occupational therapy to optimize mobility and activities of daily living. * Dysphagia, status post cerebrovascular accident. Receiving e-stim therapy for poor oral bolus management including discoordination, pocketing L sulcus, and leak from L labial seal. Getting e-stim therapy. Continue Speech and Language Pathology. * Cognitive impairment with decreased executive function which impact problem solving and memory. She has decreased inhibition and and repair skills. She is stimulus bound and does not easily break attention to attend to another task. Attention is improved with modafinil. * Insomnia and somnolence. Insomnia worse on modafinil? Changed to methylphenidate 5 mg twice daily before breakfast and lunch starting 2016. Increase trazodone from 50 mg QHS to 75 mg QHS starting 12/23/16; hope to avoid use of alprazolam as it may contribute to confusion and sleepiness in the morning. Was improved with trazodone at HS 50 mg, as well as melatonin 3 mg; melatonin d/c'd after several days. Per report prior to the stroke she was a night owl and often slept in until 10 or 11 in the morning. Shifted morning ADLs as late as possible, 9:00 a.m. Continue to monitor. * Hypertension, with metoprolol having been resumed during her hospitalization. Bradycardia of progressively worse, metoprolol changed from 100 mg twice daily to 50 mg twice daily on 12/19/2016; taper further to 25 mg twice daily on 12/21/2016 and to 12.5 mg twice daily on 09/21/2016; continue and enalapril 10 mg q.day initiated on 12/20/2016. Continue to monitor. * Urinary tract infection with symptoms and a suggestive urinalysis, treated with cefuroxime to which E coli was susceptible, and resolved. Recurrent symptoms and positive urinalysis 12/25/2016. Ordered nitrofurantoin 100 mg twice daily for 7 days. Chronic/stable conditions: * Secondary stroke prophylaxis. Blood pressure control, lipid control, and resumption of anticoagulation starting on December 19, 2016. * Paroxysmal AFib. Stopped warfarin and initiated apixaban 12/21/2016, per patient's request as she does not want repeated blood tests. reports 60 dollar monthly co-pay for apixaban, which she can afford. * Headache. Continue acetaminophen. * Left knee degenerative joint disease with considerable pain. Continue acetaminophen and consider other pain medications if her knee pain interferes with her ability to participate in therapies. * Constipation. Resolved. Continue laxatives. * Gastroesophageal reflux disorder. Continue famotidine and treat constipation. * History of chronic benzodiazepine dependence. Continue alprazolam p.r.n. * Prophylaxis. With hemiparesis she is at elevated risk for deep venous thrombosis. On apixaban and enoxaparin discontinued. Continue famotidine for GERD. No current indication for a proton pump inhibitor. * Doppler ultrasound of lower extremities done 12/18/2016 as nurse found caps tender to palpation. There was no DVT. Very disabled, minimal progress. golf manager to discuss with options regarding assisted facility discharge either [place] or [place]. Intends to return home with to [place], by car; this seems unlikely for a very long time. Further discussion planned at family meeting next week. Continue tentative discharge date of 01/17/17. 12/30/16 14:31 Subjective: Has had poor sleep and is using alprazolam each night. Has not noted return of movement in her left leg or arm but upon prompting by her she is able to shrug her shoulder. Denies cough, dyspnea, fevers, chills. Had some neck pain last night. Describes hearing things at night including an owl and rocks on the window and it seems at night as if she is sleeping in the basement and she does know how to get out. Objective: Vital Signs Temp Pulse Resp BP Pulse Ox 36.7 C 59 L 16 119/80 92 12/30/16 06:32 12/30/16 08:41 12/30/16 06:32 12/30/16 08:41 12/30/16 06:32 12/29/16 12/30/16 12/31/16 05:59 05:59 05:59 Intake Total 700 990 580 Output Total 750 625 450 Balance -50 365 130 PT 13.8 SEC (12.0-15.0) 12/21/16 06:10 INR 1.07 (0.83-1.16) 12/21/16 06:10 Physical Exam - Physical Exam General Appearance: WD/WN, alert, no apparent distress, obese Respiratory: normal breath sounds, No crackles, No rhonchi, No wheezing Cardiac/Chest: regular rate, rhythm, No edema Skin: normal color, warm/dry Neuro/Psych: alert, normal mood/affect, motor weakness (Left upper extremity has shoulder elevation and retraction otherwise flaccid paralysis. Left lower extremity flaccid paralysis.) ICD10 Worksheet Patient Problems: Problems Problem Status Onset Cerebrovascular accident (CVA) involving right middle cerebral artery territory Acute Left hemiparesis Acute - ICD10 Problem Qualifiers (1) Cerebrovascular accident (CVA) involving right middle cerebral artery territory (2) Left hemiparesis
[2016-12-30] MEDS: CALCIUM CARBONATE 500 MG CHEWABLE TAB PO PRN (14:38)
[2016-12-30] MEDS: ATORVASTATIN CALCIUM 40 MG TAB PO SCH (20:00)
[2016-12-30] MEDS: traZODone 50 MG TAB PO SCH (20:01)
[2016-12-30] MEDS: MELATONIN 3 MG TAB PO SCH (20:01)
[2016-12-30] MEDS: ALPRAZolam 0.5 MG TAB PO PRN (20:03)
[2016-12-31] MEDS: ENALAPRIL MALEATE 5 MG TAB PO SCH (08:09)
[2016-12-31] MEDS: METOPROLOL TARTRATE 25 MG TAB PO SCH ×2 (08:10→20:44)
[2016-12-31] MEDS: FLUoxetine 20 MG CAP PO SCH (08:11)
[2016-12-31] MEDS: SENNOSIDES 1 TAB PO SCH ×2 (08:12→20:44)
[2016-12-31] MEDS: APIXABAN 5 MG TAB PO SCH ×2 (08:12→20:46)
[2016-12-31] MEDS: NITROFURANTOIN MACROBID 100 MG CAP PO SCH (08:12)
[2016-12-31] MEDS: FAMOTIDINE 20 MG TAB PO SCH (08:13)
--- NOTE | 2016-12-31 15:48 | SOAPPROG ---
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 Initial functional independence measure 37 on 12/18/2016; improved to 39 as of 12/25/2016. Sliding board transfers to right with minimal assist of 2, to left with moderate to maximal assistance of 2. Bed mobility moderate to maximal assistance of 2. Maximal assist with wheelchair mobility due to neglect of left side. Grooming and hygiene seated with max assistance to maintain seated balance. Upper body dressing moderate to max assist, lower body max to total assist bathing with total assist. Left visual field cut. Continue physical therapy and occupational therapy to optimize mobility and activities of daily living. * Dysphagia, status post cerebrovascular accident. Receiving e-stim therapy for poor oral bolus management including discoordination, pocketing L sulcus, and leak from L labial seal. Getting e-stim therapy. Continue Speech and Language Pathology. * Cognitive impairment with decreased executive function which impact problem solving and memory. She has decreased inhibition and and repair skills. She is stimulus bound and does not easily break attention to attend to another task. Attention is improved with modafinil. * Insomnia and somnolence. Insomnia worse on modafinil? Changed to methylphenidate 5 mg twice daily before breakfast and lunch starting 2016. Monitor for response. Increased trazodone from 50 mg QHS to 75 mg QHS starting 12/23/16; hope to avoid use of alprazolam as it may contribute to confusion and sleepiness in the morning. Was improved with trazodone at HS 50 mg, as well as melatonin 3 mg; melatonin d/c'd after several days. Per report prior to the stroke she was a night owl and often slept in until 10 or 11 in the morning. Shifted morning ADLs as late as possible, 9:00 a.m. Continue to monitor. * Hypertension, with metoprolol having been resumed during her hospitalization. Bradycardia of progressively worse, metoprolol changed from 100 mg twice daily to 50 mg twice daily on 12/19/2016; taper further to 25 mg twice daily on 12/21/2016 and to 12.5 mg twice daily on 09/21/2016; continue and enalapril 10 mg q.day initiated on 12/20/2016. Continue to monitor. * Urinary tract infection with symptoms and a suggestive urinalysis, treated with cefuroxime to which E coli was susceptible, and resolved. Recurrent symptoms and positive urinalysis 12/25/2016. Ordered nitrofurantoin 100 mg twice daily for 7 days. Chronic/stable conditions: * Secondary stroke prophylaxis. Blood pressure control, lipid control, and resumption of anticoagulation starting on December 19, 2016. * Paroxysmal AFib. Stopped warfarin and initiated apixaban 12/21/2016, per patient's request as she does not want repeated blood tests. reports 60 dollar monthly co-pay for apixaban, which she can afford. * Headache. Continue acetaminophen. * Left knee degenerative joint disease with considerable pain. Continue acetaminophen and consider other pain medications if her knee pain interferes with her ability to participate in therapies. * Constipation. Resolved. Continue laxatives. * Gastroesophageal reflux disorder. Continue famotidine and treat constipation. * History of chronic benzodiazepine dependence. Continue alprazolam p.r.n. * Prophylaxis. With hemiparesis she is at elevated risk for deep venous thrombosis. On apixaban and enoxaparin discontinued. Continue famotidine for GERD. No current indication for a proton pump inhibitor. * Doppler ultrasound of lower extremities done 12/18/2016 as nurse found caps tender to palpation. There was no DVT. Very disabled, minimal progress. technology services manager to discuss with options regarding alf facility discharge either [place] or [place]. Intends to return home with to [place], by car; this seems unlikely for a very long time. Further discussion planned at family meeting next week. Continue tentative discharge date of 01/17/17. 12/31/16 15:48 Subjective: Says she felt tired during her afternoon therapy session. Otherwise without complaints. Nurse and aide preparing for Prashanth lift transfer from wheelchair to bed. Patient states that she could pull up to standing but nurse reports that she has not been cleared to do this by nursing yet. Objective: Vital Signs Temp Pulse Resp BP Pulse Ox 36.5 C 53 L 16 152/73 H 94 12/31/16 06:46 12/31/16 08:10 12/31/16 06:46 12/31/16 08:10 12/31/16 06:46 12/30/16 12/31/16 01/01/17 05:59 05:59 05:59 Intake Total 990 820 354 Output Total 851 975 400 Balance 365 -155 -46 PT 13.8 SEC (12.0-15.0) 12/21/16 06:10 INR 1.07 (0.83-1.16) 12/21/16 06:10 Physical Exam - Physical Exam General Appearance: WD/WN, alert, no apparent distress Respiratory: normal breath sounds, No crackles, No rhonchi, No wheezing Cardiac/Chest: regular rate, rhythm, No edema Skin: normal color, warm/dry Neuro/Psych: alert, normal mood/affect, motor weakness (Left hemiparesis) ICD10 Worksheet Patient Problems: Problems Problem Status Onset Cerebrovascular accident (CVA) involving right middle cerebral artery territory Acute Left hemiparesis Acute - ICD10 Problem Qualifiers (1) Cerebrovascular accident (CVA) involving right middle cerebral artery territory (2) Left hemiparesis
[2016-12-31] MEDS: ATORVASTATIN CALCIUM 40 MG TAB PO SCH (20:44)
[2016-12-31] MEDS: ALPRAZolam 0.5 MG TAB PO PRN (20:45)
[2016-12-31] MEDS: traZODone 50 MG TAB PO SCH (20:46)
[2016-12-31] MEDS: MELATONIN 3 MG TAB PO SCH (20:46)
[2017-01-01] MEDS: SENNOSIDES 1 TAB PO SCH ×2 (09:31→20:24)
[2017-01-01] MEDS: APIXABAN 5 MG TAB PO SCH ×2 (09:31→20:26)
[2017-01-01] MEDS: FAMOTIDINE 20 MG TAB PO SCH (09:31)
[2017-01-01] MEDS: METOPROLOL TARTRATE 25 MG TAB PO SCH ×2 (09:31→20:25)
[2017-01-01] MEDS: FLUoxetine 20 MG CAP PO SCH (09:31)
[2017-01-01] MEDS: ENALAPRIL MALEATE 5 MG TAB PO SCH (09:32)
--- NOTE | 2017-01-01 09:48 | SOAPPROG ---
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 Initial functional independence measure 37 on 12/18/2016; improved to 40 as of 12/25/2016, plateaued at 40 on 2016. Sliding board transfers to right with minimal assist of 2, to left with moderate to maximal assistance of 2. Bed mobility moderate to maximal assistance of 2. Moderate to maximal assist with wheelchair mobility due to neglect of left side. Grooming and hygiene seated with assistance to maintain seated balance. Upper body dressing min assist with cues, lower body max to total assist bathing with total assist. Left visual field cut. Continue physical therapy and occupational therapy to optimize mobility and activities of daily living. * Dysphagia, status post cerebrovascular accident. Receiving e-stim therapy for poor oral bolus management including discoordination, pocketing L sulcus, and leak from L labial seal. Getting e-stim therapy. Advanced to a dysphagia 3 diet texture with thin liquids. Continue Speech and Language Pathology. * Cognitive impairment with decreased executive function which impacts problem solving and memory. She has decreased inhibition and and repair skills. She is stimulus bound and does not easily break attention to attend to another task. Attention is improved with modafinil; changed to methylphenidate due to insomnia. * Insomnia and somnolence. Insomnia worse on modafinil? Changed to methylphenidate 5 mg twice daily before breakfast and lunch starting 2016. Increased trazodone from 50 mg QHS to 75 mg QHS starting 12/23/16; hope to avoid use of alprazolam as it may contribute to confusion and sleepiness in the morning. Was improved with trazodone at HS 50 mg, as well as melatonin 3 mg ; melatonin d/c'd after several days. Per report prior to the stroke she was a night owl and often slept in until 10 or 11 in the morning. Shifted morning ADLs as late as possible, 9:00 a.m. Continue to monitor. * Hypertension, with metoprolol having been resumed during her hospitalization. Bradycardia of progressively worse, metoprolol changed from 100 mg twice daily to 50 mg twice daily on 12/19/2016; taper further to 25 mg twice daily on 12/21/2016 and to 12.5 mg twice daily on 09/21/2016; continue and enalapril 10 mg q.day initiated on 12/20/2016. Continue to monitor. Chronic/stable conditions: * Urinary tract infection with symptoms and a suggestive urinalysis, treated with cefuroxime to which E coli was susceptible, and resolved. Recurrent symptoms and positive urinalysis 12/25/2016. Ordered nitrofurantoin 100 mg twice daily for 7 days. * Secondary stroke prophylaxis. Blood pressure control, lipid control, and resumption of anticoagulation starting on December 19, 2016. * Paroxysmal AFib. Stopped warfarin and initiated apixaban 12/21/2016, per patient's request as she does not want repeated blood tests. reports 60 dollar monthly co-pay for apixaban, which she can afford. * Headache. Continue acetaminophen. * Left knee degenerative joint disease with considerable pain. Continue acetaminophen and consider other pain medications if her knee pain interferes with her ability to participate in therapies. * Constipation. Resolved. Continue laxatives. * Gastroesophageal reflux disorder. Continue famotidine and treat constipation. * History of chronic benzodiazepine dependence. Continue alprazolam p.r.n. * Prophylaxis. With hemiparesis she is at elevated risk for deep venous thrombosis. On apixaban and enoxaparin discontinued. Continue famotidine for GERD. No current indication for a proton pump inhibitor. * Doppler ultrasound of lower extremities done 12/18/2016 as nurse found caps tender to palpation. There was no DVT. Attended staffing, 15 minutes. Discussed with case management, dietitian, nursing, PT, OT, MANAGER SUMMER. Attended family conference, 30 minutes, patient and son present. Continues very disabled with no FIM gain over the past week. Discussed discharge to alf facility for lower level of care and possibility of return to inpatient rehabilitation if she has improvement. 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 01/01/17 11:25 01/01/17 17:54 Subjective: No complaints this morning. Reports good alertness yesterday and today though yesterday with her last therapy session she had fatigue. She wonders whether the trazodone is causing her to have somnolence during the day. She continues to use alprazolam at HS every night for the past 5 nights. Objective: Vital Signs Temp Pulse Resp BP Pulse Ox 36.9 C 60 16 126/70 H 93 12/31/16 20:00 01/01/17 09:31 12/31/16 20:00 01/01/17 09:32 12/31/16 20:00 12/31/16 01/01/17 01/02/17 05:59 05:59 05:59 Intake Total 820 1194 Output Total 975 400 Balance -155 794 PT 13.8 SEC (12.0-15.0) 12/21/16 06:10 INR 1.07 (0.83-1.16) 12/21/16 06:10 - Time Spent With Patient Time Spent With Patient: Greater than 35 minutes floor time today, including more than 50% of time in coordination of care during staffing meeting and counseling patient and family during family meeting. Physical Exam - Physical Exam General Appearance: WD/WN, alert, no apparent distress Respiratory: No respiratory distress, No accessory muscle use Skin: normal color, warm/dry Neuro/Psych: alert, normal mood/affect, motor weakness ICD10 Worksheet Patient Problems: Problems Problem Status Onset Cerebrovascular accident (CVA) involving right middle cerebral artery territory Acute Left hemiparesis Acute - ICD10 Problem Qualifiers (1) Cerebrovascular accident (CVA) involving right middle cerebral artery territory (2) Left hemiparesis
[2017-01-01] MEDS: ALPRAZolam 0.5 MG TAB PO PRN (20:24)
[2017-01-01] MEDS: ATORVASTATIN CALCIUM 40 MG TAB PO SCH (20:24)
[2017-01-01] MEDS: traZODone 50 MG TAB PO SCH (20:55)
[2017-01-01] MEDS: MELATONIN 3 MG TAB PO SCH (20:55)
[2017-01-01] MEDS: ACETAMINOPHEN 325 MG TAB PO PRN (22:56)
[2017-01-02] MEDS: METOPROLOL TARTRATE 25 MG TAB PO SCH ×2 (08:41→20:02)
[2017-01-02] MEDS: ENALAPRIL MALEATE 5 MG TAB PO SCH (08:41)
[2017-01-02] MEDS: SENNOSIDES 1 TAB PO SCH ×2 (08:41→20:02)
[2017-01-02] MEDS: FLUoxetine 20 MG CAP PO SCH (08:41)
[2017-01-02] MEDS: FAMOTIDINE 20 MG TAB PO SCH (08:42)
[2017-01-02] MEDS: APIXABAN 5 MG TAB PO SCH ×2 (08:42→20:02)
--- NOTE | 2017-01-02 11:16 | SOAPPROG ---
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 Continues to have high postvoid residuals, trialing a dose of bethanechol 5 mg 4 times a day. No obvious reason for bladder outlet obstruction. Continue to monitor. A total of 30 minutes was spent on the floor in the care of the patient, the majority of which was spent counseling and coordination of care regarding urination, postvoid residuals, and possible treatment options. * Left hemiparesis and sensory loss. Initial functional independence measure 37 on 12/18/2016; improved to 40 as of 12/25/2016, plateaued at 40 on 2016. Sliding board transfers to right with minimal assist of 2, to left with moderate to maximal assistance of 2. Bed mobility moderate to maximal assistance of 2. Moderate to maximal assist with wheelchair mobility due to neglect of left side. Grooming and hygiene seated with assistance to maintain seated balance. Upper body dressing min assist with cues, lower body max to total assist bathing with total assist. Left visual field cut. Continue physical therapy and occupational therapy to optimize mobility and activities of daily living. * Dysphagia, status post cerebrovascular accident. Receiving e-stim therapy for poor oral bolus management including discoordination, pocketing L sulcus, and leak from L labial seal. Getting e-stim therapy. Advanced to a dysphagia 3 diet texture with thin liquids. Continue Speech and Language Pathology. * Cognitive impairment with decreased executive function which impacts problem solving and memory. She has decreased inhibition and and repair skills. She is stimulus bound and does not easily break attention to attend to another task. Attention is improved with modafinil; changed to methylphenidate due to insomnia. * Insomnia and somnolence. Insomnia worse on modafinil? Changed to methylphenidate 5 mg twice daily before breakfast and lunch starting 2016. Increased trazodone from 50 mg QHS to 75 mg QHS starting 12/23/16; hope to avoid use of alprazolam as it may contribute to confusion and sleepiness in the morning. Was improved with trazodone at HS 50 mg, as well as melatonin 3 mg ; melatonin d/c'd after several days. Per report prior to the stroke she was a night owl and often slept in until 10 or 11 in the morning. Shifted morning ADLs as late as possible, 9:00 a.m. Continue to monitor. * Hypertension, with metoprolol having been resumed during her hospitalization. Bradycardia of progressively worse, metoprolol changed from 100 mg twice daily to 50 mg twice daily on 12/19/2016; taper further to 25 mg twice daily on 12/21/2016 and to 12.5 mg twice daily on 09/21/2016; continue and enalapril 10 mg q.day initiated on 12/20/2016. Continue to monitor. * High postvoid residuals: No clear etiology, however consistent with her history of needing to void repeatedly to fully empty. Trial of bethanechol 5 mg 4 times a day. Chronic/stable conditions: * Urinary tract infection with symptoms and a suggestive urinalysis, treated with cefuroxime to which E coli was susceptible, and resolved. Recurrent symptoms and positive urinalysis 12/25/2016. Ordered nitrofurantoin 100 mg twice daily for 7 days. * Secondary stroke prophylaxis. Blood pressure control, lipid control, and resumption of anticoagulation starting on December 19, 2016. * Paroxysmal AFib. Stopped warfarin and initiated apixaban 12/21/2016, per patient's request as she does not want repeated blood tests. reports 60 dollar monthly co-pay for apixaban, which she can afford. * Headache. Continue acetaminophen. * Left knee degenerative joint disease with considerable pain. Continue acetaminophen and consider other pain medications if her knee pain interferes with her ability to participate in therapies. * Constipation. Resolved. Continue laxatives. * Gastroesophageal reflux disorder. Continue famotidine and treat constipation. * History of chronic benzodiazepine dependence. Continue alprazolam p.r.n. * Prophylaxis. With hemiparesis she is at elevated risk for deep venous thrombosis. On apixaban and enoxaparin discontinued. Continue famotidine for GERD. No current indication for a proton pump inhibitor. * Doppler ultrasound of lower extremities done 12/18/2016 as nurse found caps tender to palpation. There was no DVT. Possible to alf facility for lower level of care and possibility of return to inpatient rehabilitation if she has improvement, however she is making better improvement at this point. 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 12/24/16 08:17 12/24/16 08:22 01/02/17 11:13 Subjective: Chief complaint: Incomplete voiding No acute events overnight. Patient was seen with her in the room. No new shortness of breath or chest pain, no new numbness, tingling, or weakness. Patient endorses that she has had difficulty completely voiding for many years, her endorses this is well and says that she has to repeatedly void to fully empty. She would not like a Thrasher catheter she gets repeat urinary tract infections when she gets 1. Otherwise, she feels she is participating in therapy , no new concerns today. She feels more alert and feels that her sleep medications are well managed. Objective: Vital Signs Temp Pulse Resp BP Pulse Ox 36.3 C 65 18 127/90 H 93 01/01/17 20:00 01/02/17 08:41 01/02/17 06:15 01/02/17 08:41 01/02/17 06:15 01/01/17 01/02/17 01/03/17 05:59 05:59 05:59 Intake Total 1194 1284 Output Total 400 300 Balance 794 984 PT 13.8 SEC (12.0-15.0) 12/21/16 06:10 INR 1.07 (0.83-1.16) 12/21/16 06:10 Physical Exam - Physical Exam General Appearance: alert, no apparent distress EENT: No scleral icterus (R), No scleral icterus (L) Respiratory: normal breath sounds, No respiratory distress, No accessory muscle use Cardiac/Chest: normal peripheral pulses, regular rate, rhythm, No edema Abdomen: soft, No distended Skin: normal color, warm/dry, No cyanosis Extremities: No pedal edema, No swelling Neuro/Psych: alert, other (Slow verbal responses. She has dense left-sided neglect, also has impaired sensation on the left side of her body. Left-sided finger flexion was 1/5, otherwise she did not voluntarily move the left side. Right-sided gaze preference. Speaking very slowly, she had a left-sided facial droop) ICD10 Worksheet Patient Problems: Problems Problem Status Onset Cerebrovascular accident (CVA) involving right middle cerebral artery territory Acute Left hemiparesis Acute
[2017-01-02] MEDS: BETHANECHOL 5 MG TAB PO SCH ×3 (12:24→20:02)
[2017-01-02] MEDS: ACETAMINOPHEN 325 MG TAB PO PRN ×2 (16:23→23:37)
[2017-01-02] MEDS: ATORVASTATIN CALCIUM 40 MG TAB PO SCH (20:02)
[2017-01-02] MEDS: ALPRAZolam 0.5 MG TAB PO PRN (20:02)
[2017-01-02] MEDS: MELATONIN 3 MG TAB PO SCH (20:03)
[2017-01-02] MEDS: traZODone 50 MG TAB PO SCH (20:03)
[2017-01-03] MEDS: BETHANECHOL 5 MG TAB PO SCH ×4 (05:43→20:56)
[2017-01-03] MEDS: METOPROLOL TARTRATE 25 MG TAB PO SCH ×2 (09:33→21:00)
[2017-01-03] MEDS: ENALAPRIL MALEATE 5 MG TAB PO SCH (09:33)
[2017-01-03] MEDS: FLUoxetine 20 MG CAP PO SCH (09:34)
[2017-01-03] MEDS: FAMOTIDINE 20 MG TAB PO SCH (09:34)
[2017-01-03] MEDS: APIXABAN 5 MG TAB PO SCH ×2 (09:34→20:56)
[2017-01-03] MEDS: SENNOSIDES 1 TAB PO SCH ×2 (09:35→21:53)
--- NOTE | 2017-01-03 14:52 | SOAPPROG ---
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 Initial functional independence measure 37 on 12/18/2016; improved to 40 as of 12/25/2016, plateaued at 40 on 2016. Sliding board transfers to right with minimal assist of 2, to left with moderate to maximal assistance of 2. Bed mobility moderate to maximal assistance of 2. Moderate to maximal assist with wheelchair mobility due to neglect of left side. Grooming and hygiene seated with assistance to maintain seated balance. Upper body dressing min assist with cues, lower body max to total assist bathing with total assist. Left visual field cut. Continue physical therapy and occupational therapy to optimize mobility and activities of daily living. * Dysphagia, status post cerebrovascular accident. Receiving e-stim therapy for poor oral bolus management including discoordination, pocketing L sulcus, and leak from L labial seal. Getting e-stim therapy. Advanced to a dysphagia 3 diet texture with thin liquids. Continue Speech and Language Pathology. * Cognitive impairment with decreased executive function which impacts problem solving and memory. She has decreased inhibition and and repair skills. She is stimulus bound and does not easily break attention to attend to another task. Attention is improved with modafinil; changed to methylphenidate due to insomnia. * Insomnia and somnolence. Insomnia worse on modafinil? Changed to methylphenidate 5 mg twice daily before breakfast and lunch starting 2016. Increased trazodone from 50 mg QHS to 75 mg QHS starting 12/23/16; hope to avoid use of alprazolam as it may contribute to confusion and sleepiness in the morning. Was improved with trazodone at HS 50 mg, as well as melatonin 3 mg ; melatonin d/c'd after several days. Per report prior to the stroke she was a night owl and often slept in until 10 or 11 in the morning. Shifted morning ADLs as late as possible, 9:00 a.m. Continue to monitor. * Hypertension, with metoprolol having been resumed during her hospitalization. Bradycardia of progressively worse, metoprolol changed from 100 mg twice daily to 50 mg twice daily on 12/19/2016; taper further to 25 mg twice daily on 12/21/2016 and to 12.5 mg twice daily on 09/21/2016; continue and enalapril 10 mg q.day initiated on 12/20/2016. Continue to monitor. * Urinary retention with intermittent elevated postvoid residuals on bladder scanning. Began bethanechol yesterday. Nursing to monitor for improvement in residuals. Chronic/stable conditions: * Urinary tract infection with symptoms and a suggestive urinalysis, treated with cefuroxime to which E coli was susceptible, and resolved. Recurrent symptoms and positive urinalysis 12/25/2016. Treated with nitrofurantoin 100 mg twice daily for 7 days. * Secondary stroke prophylaxis. Blood pressure control, lipid control, and resumption of anticoagulation starting on December 19, 2016. * Paroxysmal AFib. Stopped warfarin and initiated apixaban 12/21/2016, per patient's request as she does not want repeated blood tests. reports 60 dollar monthly co-pay for apixaban, which she can afford. * Headache. Continue acetaminophen. * Left knee degenerative joint disease with considerable pain. Continue acetaminophen and consider other pain medications if her knee pain interferes with her ability to participate in therapies. * Constipation. Resolved. Continue laxatives. * Gastroesophageal reflux disorder. Continue famotidine and treat constipation. * History of chronic benzodiazepine dependence. Continue alprazolam p.r.n. * Prophylaxis. With hemiparesis she is at elevated risk for deep venous thrombosis. On apixaban and enoxaparin discontinued. Continue famotidine for GERD. No current indication for a proton pump inhibitor. * Doppler ultrasound of lower extremities done 12/18/2016 as nurse found caps tender to palpation. There was no DVT. Continues very disabled with no FIM gain over the past week. Discussed discharge to care home facility for lower level of care and possibility of return to inpatient rehabilitation if she has improvement. 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 01/03/17 14:42 Subjective: No complaints. Not in pain. No cough, dyspnea, no fevers in or chills. No dysuria. No urinary frequency. Objective: Vital Signs Temp Pulse Resp BP Pulse Ox 36.6 C 61 16 135/75 H 92 01/03/17 06:03 01/03/17 06:03 01/03/17 06:03 01/03/17 06:03 01/03/17 06:03 01/02/17 01/03/17 01/04/17 05:59 05:59 05:59 Intake Total 1284 640 360 Output Total 300 600 Balance 984 40 360 PT 13.8 SEC (12.0-15.0) 12/21/16 06:10 INR 1.07 (0.83-1.16) 12/21/16 06:10 Physical Exam - Physical Exam General Appearance: WD/WN, alert, no apparent distress Respiratory: normal breath sounds, No crackles, No rhonchi, No wheezing Cardiac/Chest: regular rate, rhythm, No edema Skin: normal color, warm/dry Neuro/Psych: alert, normal mood/affect ICD10 Worksheet Patient Problems: Problems Problem Status Onset Cerebrovascular accident (CVA) involving right middle cerebral artery territory Acute Left hemiparesis Acute - ICD10 Problem Qualifiers (1) Cerebrovascular accident (CVA) involving right middle cerebral artery territory (2) Left hemiparesis
[2017-01-03] MEDS: ATORVASTATIN CALCIUM 40 MG TAB PO SCH (20:55)
[2017-01-03] MEDS: traZODone 50 MG TAB PO SCH ×2 (20:55→21:54)
[2017-01-03] MEDS: ALPRAZolam 0.5 MG TAB PO PRN (21:10)
[2017-01-03] MEDS: CALCIUM CARBONATE 500 MG CHEWABLE TAB PO PRN (22:21)
[2017-01-04] MEDS: BETHANECHOL 5 MG TAB PO SCH ×4 (05:25→20:10)
[2017-01-04] MEDS: ENALAPRIL MALEATE 5 MG TAB PO SCH (08:30)
[2017-01-04] MEDS: APIXABAN 5 MG TAB PO SCH ×2 (08:30→20:10)
[2017-01-04] MEDS: FLUoxetine 20 MG CAP PO SCH (08:30)
[2017-01-04] MEDS: FAMOTIDINE 20 MG TAB PO SCH (08:30)
[2017-01-04] MEDS: METOPROLOL TARTRATE 25 MG TAB PO SCH ×2 (08:30→20:11)
--- NOTE | 2017-01-04 08:32 | SOAPPROG ---
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 Initial functional independence measure 37 on 12/18/2016; improved to 40 as of 12/25/2016, plateaued at 40 on 2016. Sliding board transfers to right with minimal assist of 2, to left with moderate to maximal assistance of 2. Bed mobility moderate to maximal assistance of 2. Moderate to maximal assist with wheelchair mobility due to neglect of left side. Grooming and hygiene seated with assistance to maintain seated balance. Upper body dressing min assist with cues, lower body max to total assist bathing with total assist. Left visual field cut. Continue physical therapy and occupational therapy to optimize mobility and activities of daily living. * Dysphagia, status post cerebrovascular accident. Receiving e-stim therapy for poor oral bolus management including discoordination, pocketing L sulcus, and leak from L labial seal. Getting e-stim therapy. Advanced to a dysphagia 3 diet texture with thin liquids. Continue Speech and Language Pathology. * Cognitive impairment with decreased executive function which impacts problem solving and memory. She has decreased inhibition and and repair skills. She is stimulus bound and does not easily break attention to attend to another task. Attention is improved with modafinil; changed to methylphenidate due to insomnia. * Insomnia and somnolence. Insomnia worse on modafinil? Changed to methylphenidate 5 mg twice daily before breakfast and lunch starting 2016. Increased trazodone from 50 mg QHS to 75 mg QHS starting 12/23/16; hope to avoid use of alprazolam as it may contribute to confusion and sleepiness in the morning. Was improved with trazodone at HS 50 mg, as well as melatonin 3 mg ; melatonin d/c'd after several days. Per report prior to the stroke she was a night owl and often slept in until 10 or 11 in the morning. Shifted morning ADLs as late as possible, 9:00 a.m. Continue to monitor. * Hypertension, with metoprolol having been resumed during her hospitalization. Bradycardia progressively worse, metoprolol changed from 100 mg twice daily to 50 mg twice daily on 12/19/2016; taper further to 25 mg twice daily on 2016 and to 12.5 mg twice daily on 12/22/2016; continue and enalapril 10 mg q.day initiated on 12/20/2016. Continue to monitor. * Urinary retention with intermittent elevated postvoid residuals on bladder scanning. Began bethanechol yesterday. Nursing to monitor for improvement in residuals. Chronic/stable conditions: * Urinary tract infection with symptoms and a suggestive urinalysis, treated with cefuroxime to which E coli was susceptible, and resolved. Recurrent symptoms and positive urinalysis 12/25/2016. Treated with nitrofurantoin 100 mg twice daily for 7 days. * Secondary stroke prophylaxis. Blood pressure control, lipid control, and resumption of anticoagulation starting on December 19, 2016. * Paroxysmal AFib. Stopped warfarin and initiated apixaban 12/21/2016, per patient's request as she does not want repeated blood tests. reports 60 dollar monthly co-pay for apixaban, which she can afford. * Headache. Continue acetaminophen. * Left knee degenerative joint disease with considerable pain. Continue acetaminophen and consider other pain medications if her knee pain interferes with her ability to participate in therapies. * Constipation. Resolved. Continue laxatives. * Gastroesophageal reflux disorder. Continue famotidine and treat constipation. * History of chronic benzodiazepine dependence. Continue alprazolam p.r.n. * Prophylaxis. With hemiparesis she is at elevated risk for deep venous thrombosis. On apixaban and enoxaparin discontinued. Continue famotidine for GERD. No current indication for a proton pump inhibitor. * Doppler ultrasound of lower extremities done 12/18/2016 as nurse found caps tender to palpation. There was no DVT. Continues very disabled with no FIM gain over the past week. Discussed discharge to retirement facility for lower level of care and possibility of return to inpatient rehabilitation if she has improvement. 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 01/04/17 08:29 Subjective: Minimal interaction this morning. Did open her eyes and ackowledge this marketing underwriter although as around 7:30. NO report from RN's of concerns overnight. Objective: Vital Signs Temp Pulse Resp BP Pulse Ox 36.5 C 67 16 144/79 H 91 L 01/04/17 05:34 01/04/17 05:34 01/04/17 05:34 01/04/17 05:34 01/04/17 05:34 01/03/17 01/04/17 01/05/17 05:59 05:59 05:59 Intake Total 640 890 Output Total 600 700 Balance 40 190 PT 13.8 SEC (12.0-15.0) 12/21/16 06:10 INR 1.07 (0.83-1.16) 12/21/16 06:10 Physical Exam - Physical Exam General Appearance: other (Sleeping - Was able to arouse with palpation) Respiratory: lungs clear, normal breath sounds Cardiac/Chest: irregularly irregular Abdomen: normal bowel sounds, non-tender Neuro/Psych: other (Right lambert facing, Able to responde to tactile stimulation) ICD10 Worksheet Patient Problems: Problems Problem Status Onset Cerebrovascular accident (CVA) involving right middle cerebral artery territory Acute Left hemiparesis Acute
[2017-01-04] MEDS: SENNOSIDES 1 TAB PO SCH (08:38)
[2017-01-04] MEDS ORDERED: SENNOSIDES 1 TAB PO PRN (09:47)
[2017-01-04] MEDS: PREPARATION H 51 GM CRTUBE PR PRN (16:02)
[2017-01-04] MEDS: ACETAMINOPHEN 325 MG TAB PO PRN (19:13)
[2017-01-04] MEDS: ATORVASTATIN CALCIUM 40 MG TAB PO SCH (20:09)
[2017-01-04] MEDS: ALPRAZolam 0.5 MG TAB PO PRN (20:10)
[2017-01-04] MEDS: traZODone 50 MG TAB PO SCH (20:44)
[2017-01-05] MEDS: BETHANECHOL 5 MG TAB PO SCH ×4 (07:16→20:02)
--- NOTE | 2017-01-05 08:44 | SOAPPROG ---
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 Initial functional independence measure 37 on 12/18/2016; improved to 40 as of 12/25/2016, plateaued at 40 on 2016. Sliding board transfers to right with minimal assist of 2, to left with moderate to maximal assistance of 2. Bed mobility moderate to maximal assistance of 2. Moderate to maximal assist with wheelchair mobility due to neglect of left side. Grooming and hygiene seated with assistance to maintain seated balance. Upper body dressing min assist with cues, lower body max to total assist bathing with total assist. Left visual field cut. Continue physical therapy and occupational therapy to optimize mobility and activities of daily living. * Dysphagia, status post cerebrovascular accident. Receiving e-stim therapy for poor oral bolus management including discoordination, pocketing L sulcus, and leak from L labial seal. Getting e-stim therapy. Advanced to a dysphagia 3 diet texture with thin liquids. Continue Speech and Language Pathology. * Cognitive impairment with decreased executive function which impacts problem solving and memory. She has decreased inhibition and and repair skills. She is stimulus bound and does not easily break attention to attend to another task. Attention is improved with modafinil; changed to methylphenidate due to insomnia. * Insomnia and somnolence. Insomnia worse on modafinil? Changed to methylphenidate 5 mg twice daily before breakfast and lunch starting 2016. Increased trazodone from 50 mg QHS to 75 mg QHS starting 12/23/16; hope to avoid use of alprazolam as it may contribute to confusion and sleepiness in the morning. Was improved with trazodone at HS 50 mg, as well as melatonin 3 mg ; melatonin d/c'd after several days. Per report prior to the stroke she was a night owl and often slept in until 10 or 11 in the morning. Shifted morning ADLs as late as possible, 9:00 a.m. Continue to monitor. * Hypertension, with metoprolol having been resumed during her hospitalization. Bradycardia progressively worse, metoprolol changed from 100 mg twice daily to 50 mg twice daily on 12/19/2016; taper further to 25 mg twice daily on 2016 and to 12.5 mg twice daily on 12/22/2016; continue and enalapril 10 mg q.day initiated on 12/20/2016. Continue to monitor. * Urinary retention with intermittent elevated postvoid residuals on bladder scanning. Began bethanechol - Nursing to monitor for improvement in residuals. Continue current rehabilitation and medical management. Pt feeling more rested and that has some more energy during the day.Reviewing with RN's she seems to be responding to the ritalin well without any side effects. will increase to 10mg twice per morning to see if this will continue to improve participation/ alertness. Pt still with dense left hemineglect although is able to move her left leg on command - has some sense of her left surrounding. RN continue to follow her bladder management - some improvement. HR has responded well to the change in metoprolol with ongoing good control of her BP. no new pain or other changes in neurologic status Chronic/stable conditions: * Urinary tract infection with symptoms and a suggestive urinalysis, treated with cefuroxime to which E coli was susceptible, and resolved. Recurrent symptoms and positive urinalysis 12/25/2016. Treated with nitrofurantoin 100 mg twice daily for 7 days. * Secondary stroke prophylaxis. Blood pressure control, lipid control, and resumption of anticoagulation starting on December 19, 2016. * Paroxysmal AFib. Stopped warfarin and initiated apixaban 12/21/2016, per patient's request as she does not want repeated blood tests. reports 60 dollar monthly co-pay for apixaban, which she can afford. * Headache. Continue acetaminophen. * Left knee degenerative joint disease with considerable pain. Continue acetaminophen and consider other pain medications if her knee pain interferes with her ability to participate in therapies. * Constipation. Resolved. Continue laxatives. * Gastroesophageal reflux disorder. Continue famotidine and treat constipation. * History of chronic benzodiazepine dependence. Continue alprazolam p.r.n. * Prophylaxis. With hemiparesis she is at elevated risk for deep venous thrombosis. On apixaban and enoxaparin discontinued. Continue famotidine for GERD. No current indication for a proton pump inhibitor. * Doppler ultrasound of lower extremities done 12/18/2016 as nurse found caps tender to palpation. There was no DVT. Continues very disabled with no FIM gain over the past week. Discussed discharge to correction facility for lower level of care and possibility of return to inpatient rehabilitation if she has improvement. 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. 01/05/17 08:39 Subjective: Feeling good - up early for ADL management - says this is earlier than she is use to but feels ok. no concerns of pain, No cp/sob. Objective: Vital Signs Temp Pulse Resp BP Pulse Ox 36.9 C 55 L 16 134/78 H 93 01/05/17 06:45 01/05/17 06:45 01/05/17 06:45 01/05/17 06:45 01/05/17 06:45 01/04/17 01/05/17 01/06/17 05:59 05:59 05:59 Intake Total 890 680 75 Output Total 700 1025 Balance 190 -345 75 PT 13.8 SEC (12.0-15.0) 12/21/16 06:10 INR 1.07 (0.83-1.16) 12/21/16 06:10 Physical Exam - Physical Exam General Appearance: alert, no apparent distress EENT: other (MMM) Respiratory: lungs clear Cardiac/Chest: regular rate, rhythm Abdomen: normal bowel sounds, non-tender Skin: normal color Neuro/Psych: alert, normal mood/affect, other (Preferential gaze/attention to the right) ICD10 Worksheet Patient Problems: Problems Problem Status Onset Cerebrovascular accident (CVA) involving right middle cerebral artery territory Acute Left hemiparesis Acute
[2017-01-05] MEDS: ACETAMINOPHEN 325 MG TAB PO PRN ×2 (09:13→20:01)
[2017-01-05] MEDS: APIXABAN 5 MG TAB PO SCH ×2 (09:14→20:01)
[2017-01-05] MEDS: FLUoxetine 20 MG CAP PO SCH (09:14)
[2017-01-05] MEDS: ENALAPRIL MALEATE 5 MG TAB PO SCH (09:14)
[2017-01-05] MEDS: FAMOTIDINE 20 MG TAB PO SCH (09:14)
[2017-01-05] MEDS: METOPROLOL TARTRATE 25 MG TAB PO SCH ×2 (09:14→20:00)
[2017-01-05] MEDS: PREPARATION H 51 GM CRTUBE PR PRN (17:08)
[2017-01-05] MEDS: ALPRAZolam 0.5 MG TAB PO PRN (20:00)
[2017-01-05] MEDS: ATORVASTATIN CALCIUM 40 MG TAB PO SCH (20:02)
[2017-01-05] MEDS: traZODone 50 MG TAB PO SCH (21:01)
[2017-01-05] MEDS: CALCIUM CARBONATE 500 MG CHEWABLE TAB PO PRN (21:33)
[2017-01-06] MEDS: ACETAMINOPHEN 325 MG TAB PO PRN ×2 (04:58→23:07)
[2017-01-06] MEDS: BETHANECHOL 5 MG TAB PO SCH ×4 (05:00→20:17)
[2017-01-06] MEDS: ENALAPRIL MALEATE 5 MG TAB PO SCH (07:51)
[2017-01-06] MEDS: APIXABAN 5 MG TAB PO SCH ×2 (07:52→20:17)
[2017-01-06] MEDS: METOPROLOL TARTRATE 25 MG TAB PO SCH ×2 (07:53→20:17)
[2017-01-06] MEDS: FLUoxetine 20 MG CAP PO SCH (07:53)
[2017-01-06] MEDS: FAMOTIDINE 20 MG TAB PO SCH (07:53)
[2017-01-06] MEDS: PREPARATION H 51 GM CRTUBE PR PRN (09:06)
--- NOTE | 2017-01-06 14:04 | SOAPPROG ---
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 Initial functional independence measure 37 on 12/18/2016; improved to 40 as of 12/25/2016, plateaued at 40 on 01/01/2017 ; has had considerable improvement subsequently. Sliding board transfers to right with minimal assist of 2, to left with moderate to maximal assistance of 2. Bed mobility moderate to maximal assistance of 2. Moderate to maximal assist with wheelchair mobility due to neglect of left side. Grooming and hygiene seated with assistance to maintain seated balance. Upper body dressing min assist with cues, lower body max to total assist bathing with total assist. Left visual field cut. Continue physical therapy and occupational therapy to optimize mobility and activities of daily living. * Dysphagia, status post cerebrovascular accident. Receiving e-stim therapy for poor oral bolus management including discoordination, pocketing L sulcus, and leak from L labial seal. Getting e-stim therapy. Advanced to a dysphagia 3 diet texture with thin liquids. Continue Speech and Language Pathology. * Cognitive impairment with decreased executive function which impacts problem solving and memory. She has decreased inhibition and and repair skills. She is stimulus bound and does not easily break attention to attend to another task. Attention is improved with modafinil; changed to methylphenidate due to insomnia. * Restless leg syndrome. also describes symptoms consistent with periodic limb movements of sleep prior to her CVA. May be related to return of function to the left lower extremity. Will check CBC, iron panel, TSH, BMP. Trial of gabapentin starting with 300 mg at , 01/06/2017. * Insomnia and somnolence. Insomnia worse on modafinil? Changed to methylphenidate 5 mg twice daily before breakfast and lunch starting 12/31/2016 titrated to 10 mg twice daily on 01/05/2017. Not using trazodone so will discontinue. Continue alprazolam which she has been taking for many years, unlikely to be able to DC. Per report prior to the stroke she was a night owl and often slept in until 10 or 11 in the morning. Shifted morning ADLs as late as possible, 9:00 a.m. Continue to monitor. * Hypertension, with metoprolol having been resumed during her hospitalization. Bradycardia of progressively worse, metoprolol changed from 100 mg twice daily to 50 mg twice daily on 12/19/2016; taper further to 25 mg twice daily on 12/21/2016 and to 12.5 mg twice daily on 09/21/2016; continue and enalapril 10 mg q.day initiated on 12/20/2016. Continue to monitor. * Urinary retention with intermittent elevated postvoid residuals on bladder scanning. Began bethanechol 01/02/2017; appears to be helping. Nursing to monitor for improvement in residuals. Chronic/stable conditions: * Urinary tract infection with symptoms and a suggestive urinalysis, treated with cefuroxime to which E coli was susceptible, and resolved. Recurrent symptoms and positive urinalysis 12/25/2016. Treated with nitrofurantoin 100 mg twice daily for 7 days. * Secondary stroke prophylaxis. Blood pressure control, lipid control, and resumption of anticoagulation starting on December 19, 2016. * Paroxysmal AFib. Stopped warfarin and initiated apixaban 12/21/2016, per patient's request as she does not want repeated blood tests. reports 60 dollar monthly co-pay for apixaban, which she can afford. * Headache. Continue acetaminophen. * Left knee degenerative joint disease with considerable pain. Continue acetaminophen and consider other pain medications if her knee pain interferes with her ability to participate in therapies. * Constipation. Resolved. Continue laxatives. * Gastroesophageal reflux disorder. Continue famotidine and treat constipation. * History of chronic benzodiazepine dependence. Continue alprazolam p.r.n. * Prophylaxis. With hemiparesis she is at elevated risk for deep venous thrombosis. On apixaban and enoxaparin discontinued. Continue famotidine for GERD. No current indication for a proton pump inhibitor. * Doppler ultrasound of lower extremities done 12/18/2016 as nurse found caps tender to palpation. There was no DVT. Continues very disabled with no FIM gain over the past week. Discussed discharge to group home facility for lower level of care and possibility of return to inpatient rehabilitation if she has improvement. 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 01/03/17 14:42 01/06/17 13:54 Subjective: Transferred with nursing this afternoon with 1 assist, increasingly able to use her left leg. Emotional about her progress. Reports restless leg last night with the left leg; which she could get up and walk which has been helpful for these symptoms prior to her stroke. Interfered with sleep. Otherwise without complaints. Objective: Vital Signs Temp Pulse Resp BP Pulse Ox 37.1 C 60 16 127/67 H 92 01/06/17 06:30 01/06/17 06:30 01/06/17 06:30 01/06/17 06:30 01/06/17 06:30 01/05/17 01/06/17 01/07/17 05:59 05:59 05:59 Intake Total 680 1035 967 Output Total 1025 950 Balance -345 85 967 PT 13.8 SEC (12.0-15.0) 12/21/16 06:10 INR 1.07 (0.83-1.16) 12/21/16 06:10 Physical Exam - Physical Exam General Appearance: WD/WN, alert, no apparent distress, obese Respiratory: normal breath sounds, No crackles, No rhonchi, No wheezing Cardiac/Chest: regular rate, rhythm, No edema Skin: normal color, warm/dry Neuro/Psych: alert, normal mood/affect, oriented x 3, motor weakness (Left leg with hip flexion, hip extension, knee extension and flexion.) ICD10 Worksheet Patient Problems: Problems Problem Status Onset Cerebrovascular accident (CVA) involving right middle cerebral artery territory Acute Left hemiparesis Acute - ICD10 Problem Qualifiers (1) Cerebrovascular accident (CVA) involving right middle cerebral artery territory (2) Left hemiparesis
[2017-01-06] MEDS: ALPRAZolam 0.5 MG TAB PO PRN (20:17)
[2017-01-06] MEDS: GABAPENTIN 300 MG CAP PO SCH (20:17)
[2017-01-06] MEDS: ATORVASTATIN CALCIUM 40 MG TAB PO SCH (20:17)
[2017-01-07] MEDS: BETHANECHOL 5 MG TAB PO SCH ×4 (06:16→19:27)
[2017-01-07] MEDS: APIXABAN 5 MG TAB PO SCH ×2 (08:14→19:27)
[2017-01-07] MEDS: ENALAPRIL MALEATE 5 MG TAB PO SCH (08:22)
[2017-01-07] MEDS: FAMOTIDINE 20 MG TAB PO SCH (08:27)
[2017-01-07] MEDS: FLUoxetine 20 MG CAP PO SCH (08:27)
[2017-01-07] MEDS: METOPROLOL TARTRATE 25 MG TAB PO SCH ×2 (08:28→19:26)
[2017-01-07 08:34] LABS: % IMMATURE GRANULYOCYTES 0.3 % (0.0-1.1); ABSOLUTE IMMATURE GRANULOCYTES 0.02 10^3/uL (0.00-0.10); ADD DIFF? NO; ADD MORPH? NO; ADD SCAN? NO; ATYPICAL LYMPHOCYTE FLAG 10 (0-99); FRAGMENT RBC FLAG 0 (0-99); HEMATOCRIT 38.5 % (38.0-47.0); HEMOGLOBIN 13.5 g/dL (12.6-16.3); LEFT SHIFT FLG 0 (0-99); LIPEMIA HEMOLYSIS FLAG 90 (0-99); MEAN CELL HEMOGLOBIN 34.3 pg (27.9-34.1); MEAN CELL HEMOGLOBIN CONCENTR. 35.1 g/dL (32.4-36.7); MEAN CELL VOLUME 97.7 fL (81.5-99.8); MEAN PLATELET VOLUME 10.1 fL (8.7-11.7); PLATELET CLUMPS FLAG 0 (0-99); PLATELET COUNT 193 10^3/uL (150-400); RED BLOOD CELL COUNT 3.94 10^6/uL (4.18-5.33); RED CELL DISTRIBUTION WIDTH 12.9 % (11.5-15.2)
[2017-01-07 09:00] LABS: ANION GAP 11 mEq/L (8-16); CALCIUM 9.2 mg/dL (8.5-10.4); CARBON DIOXIDE 25 mEq/l (22-31); CHLORIDE 108 mEq/L (97-110); CREATININE 0.8 mg/dL (0.6-1.0); GLOMERULAR FILTRATION RATE > 60; GLUCOSE 87 mg/dL (70-100); POTASSIUM 3.8 mEq/L (3.5-5.2); SODIUM 144 mEq/L (134-144)
[2017-01-07 09:09] LABS: % SATURATION 23 % (20-55); TOTAL IRON BINDING CAPACITY 245 ug/dL (260-490)
--- NOTE | 2017-01-07 09:36 | SOAPPROG ---
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 She has now been on bethanechol for several days, rechecking postvoid residuals. Also changing dosing time of Ritalin to 6:00 a.m. because she has difficulty waking up. She endorses some difficulty going to sleep, but no difficulty staying asleep. Slightly elevated blood pressure today, abnormally high for her, continue to monitor. * Left hemiparesis and sensory loss. Initial functional independence measure 37 on 12/18/2016; improved to 40 as of 12/25/2016, plateaued at 40 on 01/01/2017 ; has had considerable improvement subsequently. Sliding board transfers to right with minimal assist of 2, to left with moderate to maximal assistance of 2. Bed mobility moderate to maximal assistance of 2. Moderate to maximal assist with wheelchair mobility due to neglect of left side. Grooming and hygiene seated with assistance to maintain seated balance. Upper body dressing min assist with cues, lower body max to total assist bathing with total assist. Left visual field cut. Continue physical therapy and occupational therapy to optimize mobility and activities of daily living. * Dysphagia, status post cerebrovascular accident. Receiving e-stim therapy for poor oral bolus management including discoordination, pocketing L sulcus, and leak from L labial seal. Getting e-stim therapy. Advanced to a dysphagia 3 diet texture with thin liquids. Continue Speech and Language Pathology. * Cognitive impairment with decreased executive function which impacts problem solving and memory. She has decreased inhibition and and repair skills. She is stimulus bound and does not easily break attention to attend to another task. Attention is improved with modafinil; changed to methylphenidate due to insomnia. * Restless leg syndrome. also describes symptoms consistent with periodic limb movements of sleep prior to her CVA. May be related to return of function to the left lower extremity. Will check CBC, iron panel, TSH, BMP. Trial of gabapentin starting with 300 mg at HS, 01/06/2017. * Insomnia and somnolence. Insomnia worse on modafinil? Changed to methylphenidate 5 mg twice daily before breakfast and lunch starting 12/31/2016 titrated to 10 mg twice daily on 01/05/2017. Not using trazodone so will discontinue. Continue alprazolam which she has been taking for many years, unlikely to be able to DC. Per report prior to the stroke she was a night owl and often slept in until 10 or 11 in the morning. Shifted morning ADLs as late as possible, 9:00 a.m. Continue to monitor. Also moved 1st dose of Ritalin a bit earlier. * Hypertension, with metoprolol having been resumed during her hospitalization. Bradycardia of progressively worse, metoprolol changed from 100 mg twice daily to 50 mg twice daily on 12/19/2016; taper further to 25 mg twice daily on 12/21/2016 and to 12.5 mg twice daily on 09/21/2016; continue and enalapril 10 mg q.day initiated on 12/20/2016. Continue to monitor. * Urinary retention with intermittent elevated postvoid residuals on bladder scanning. Began bethanechol 01/02/2017; appears to be helping. Nursing to monitor for improvement in residuals. Chronic/stable conditions: * Urinary tract infection with symptoms and a suggestive urinalysis, treated with cefuroxime to which E coli was susceptible, and resolved. Recurrent symptoms and positive urinalysis 12/25/2016. Treated with nitrofurantoin 100 mg twice daily for 7 days. * Secondary stroke prophylaxis. Blood pressure control, lipid control, and resumption of anticoagulation starting on December 19, 2016. * Paroxysmal AFib. Stopped warfarin and initiated apixaban 12/21/2016, per patient's request as she does not want repeated blood tests. reports 60 dollar monthly co-pay for apixaban, which she can afford. * Headache. Continue acetaminophen. * Left knee degenerative joint disease with considerable pain. Continue acetaminophen and consider other pain medications if her knee pain interferes with her ability to participate in therapies. * Constipation. Resolved. Continue laxatives. * Gastroesophageal reflux disorder. Continue famotidine and treat constipation. * History of chronic benzodiazepine dependence. Continue alprazolam p.r.n. * Prophylaxis. With hemiparesis she is at elevated risk for deep venous thrombosis. On apixaban and enoxaparin discontinued. Continue famotidine for GERD. No current indication for a proton pump inhibitor. * Doppler ultrasound of lower extremities done 12/18/2016 as nurse found caps tender to palpation. There was no DVT. Poor progress in therapies. Anticipate [facility] facility for lower level of care and possibility of return to inpatient rehabilitation if she has improvement. 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 12/24/16 08:17 12/24/16 08:22 01/02/17 11:13 01/07/17 09:32 Subjective: Chief complaint: Morning sleepiness No acute events overnight. Patient endorses she has some difficulty going to sleep, stays asleep just fine. She is sleepy in the morning has difficulty waking up. Ritalin dose is currently started at 8:00 a.m.. This is interfering with her therapies. Patient denies any new shortness of breath or chest pain, no new numbness, tingling, or weakness. Unclear history of voiding pattern changes. Spoke with family in the room, Trip, he had no concerns. Objective: Vital Signs Temp Pulse Resp BP Pulse Ox 37.0 C 66 15 151/98 H 92 01/07/17 06:22 01/07/17 08:28 01/07/17 06:22 01/07/17 08:28 01/07/17 06:22 Laboratory Results 01/07/17 07:35 01/07/17 07:35 01/06/17 01/07/17 01/08/17 05:59 05:59 05:59 Intake Total 1035 1203 404 Output Total 950 300 Balance 85 903 404 PT 13.8 SEC (12.0-15.0) 12/21/16 06:10 INR 1.07 (0.83-1.16) 12/21/16 06:10 Physical Exam - Physical Exam General Appearance: WD/WN, alert, no apparent distress EENT: No scleral icterus (R), No scleral icterus (L) Respiratory: No respiratory distress, No accessory muscle use Cardiac/Chest: normal peripheral pulses, regular rate, rhythm, No edema Abdomen: non-tender, soft Skin: normal color, warm/dry, No cyanosis Extremities: No pedal edema, No swelling Neuro/Psych: alert, normal mood/affect, other (Right-sided gaze preference, left hemiparesis. Alert and interactive) ICD10 Worksheet Patient Problems: Problems Problem Status Onset Cerebrovascular accident (CVA) involving right middle cerebral artery territory Acute Left hemiparesis Acute
[2017-01-07] MEDS: GABAPENTIN 300 MG CAP PO SCH (19:27)
[2017-01-07] MEDS: ATORVASTATIN CALCIUM 40 MG TAB PO SCH (19:27)
[2017-01-07] MEDS: ALPRAZolam 0.5 MG TAB PO PRN (19:27)
[2017-01-08] MEDS: BETHANECHOL 5 MG TAB PO SCH ×4 (05:49→20:09)
[2017-01-08] MEDS ORDERED: ENALAPRIL MALEATE 5 MG TAB PO SCH (09:23)
[2017-01-08] MEDS: APIXABAN 5 MG TAB PO SCH ×2 (09:44→20:09)
[2017-01-08] MEDS: FAMOTIDINE 20 MG TAB PO SCH (09:45)
[2017-01-08] MEDS: FLUoxetine 20 MG CAP PO SCH (09:46)
[2017-01-08] MEDS: METOPROLOL TARTRATE 25 MG TAB PO SCH ×2 (09:46→20:15)
[2017-01-08] MEDS: ENALAPRIL MALEATE 5 MG TAB PO SCH (09:49)
[2017-01-08] MEDS ORDERED: ENALAPRIL MALEATE 5 MG TAB PO ONE (10:15)
--- NOTE | 2017-01-08 15:43 | SOAPPROG ---
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 Initial functional independence measure 37 on 12/18/2016; improved to 40 as of 12/25/2016, plateaued at 40 on 01/01/2017 ; improved to 47 as of 01/08/2017. Sliding board transfers to right with minimal assist of 1, to left with moderate to moderate assist of 1. Bed mobility minimal to moderate assist of 1. Ambulated 5 feet in the parallel bars with maximal assist of 2. Can sit can do [id number] with moderate assist of 2. Dress his upper body with minimal assist, lower body with maximal assist of 1. Toilet transfer requires to be at the minimum a will to moderate assistance level. She can do anterior rodrigo care but requires assistance for posterior rodrigo care. Shower transfer required 2 persons. Continue physical therapy and occupational therapy to optimize mobility and activities of daily living. * Dysphagia, status post cerebrovascular accident. Receiving e-stim therapy for poor oral bolus management including discoordination, pocketing L sulcus, and leak from L labial seal. Getting e-stim therapy. Advanced to a dysphagia 3 diet texture with thin liquids. Trial of regular texture starting 2016. Continue Speech and Language Pathology. * Cognitive impairment with decreased executive function which impacts problem solving and memory. She has decreased inhibition and and repair skills. She is stimulus bound and does not easily break attention to attend to another task. Attention is improved with modafinil; changed to methylphenidate due to insomnia. * Restless leg syndrome. also describes symptoms consistent with periodic limb movements of sleep prior to her CVA. May be related to return of function to the left lower extremity. TSH minimally suppressed on labs 2016. CBC and iron panel were within normal limits. Trial of gabapentin starting with 300 mg at HS, 01/06/2017. * Insomnia and somnolence. Overall much improved however using alprazolam most nights. Will add back melatonin 3 mg at bedtime p.r.n.; informed patient that it ceases to work if used more than a few days consecutively. Continue methylphenidate. Continue alprazolam which she has been taking for many years, unlikely to be able to DC. Per report prior to the stroke she was a night owl and often slept in until 10 or 11 in the morning. Shifted morning ADLs as late as possible, 9:00 a.m. Continue to monitor. * Hypertension, with metoprolol having been resumed during her hospitalization. Bradycardia of progressively worse, metoprolol changed from 100 mg twice daily to 50 mg twice daily on 12/19/2016; taper further to 25 mg twice daily on 12/21/2016 and to 12.5 mg twice daily on 09/21/2016; continue and enalapril 10 mg q.day initiated on 12/20/2016. Blood pressure increasingly elevated, increase enalapril to 15 mg p. o. q.day starting 01/09/2017. Continue to monitor. * Urinary retention with intermittent elevated postvoid residuals on bladder scanning. Began bethanechol 01/02/2017; appears to be helping. Nursing to monitor for improvement in residuals. Chronic/stable conditions: * Urinary tract infection with symptoms and a suggestive urinalysis, treated with cefuroxime to which E coli was susceptible, and resolved. Recurrent symptoms and positive urinalysis 12/25/2016. Treated with nitrofurantoin 100 mg twice daily for 7 days. * Secondary stroke prophylaxis. Blood pressure control, lipid control, and resumption of anticoagulation starting on December 19, 2016. * Paroxysmal AFib. Stopped warfarin and initiated apixaban 12/21/2016, per patient's request as she does not want repeated blood tests. reports 60 dollar monthly co-pay for apixaban, which she can afford. * Headache. Continue acetaminophen. * Left knee degenerative joint disease with considerable pain. Continue acetaminophen and consider other pain medications if her knee pain interferes with her ability to participate in therapies. * Constipation. Resolved. Continue laxatives. * Gastroesophageal reflux disorder. Continue famotidine and treat constipation. * History of chronic benzodiazepine dependence. Continue alprazolam p.r.n. * Prophylaxis. With hemiparesis she is at elevated risk for deep venous thrombosis. On apixaban and enoxaparin discontinued. Continue famotidine for GERD. No current indication for a proton pump inhibitor. * Doppler ultrasound of lower extremities done 12/18/2016 as nurse found caps tender to palpation. There was no DVT. Attended staffing, 15 minutes. Discussed with case management, dietitian, nursing, PT, OT, [employer]OL AND DIE ASSEMBLER. Continues very disabled with high burden of care despite minor increase in FIIM score. Will discharge to [facility] on 2016. 01/08/17 15:36 Subjective: Had poor sleep last night. Reports that she could get herself settled. Denies pain. thinks she may have had some anxiety around keeping on schedule with the therapists the next day. She denies any restless leg symptoms. Objective: Vital Signs Temp Pulse Resp BP Pulse Ox 36.6 C 70 16 156/77 H 92 01/08/17 07:18 01/08/17 09:46 01/08/17 07:18 01/08/17 12:31 01/08/17 07:18 Laboratory Results 01/07/17 07:35 01/07/17 07:35 01/07/17 01/08/17 01/09/17 05:59 05:59 05:59 Intake Total 1203 740 708 Output Total 300 600 Balance 903 140 708 PT 13.8 SEC (12.0-15.0) 12/21/16 06:10 INR 1.07 (0.83-1.16) 12/21/16 06:10 - Time Spent With Patient Time Spent With Patient: Greater than 35 minutes floor time today, including more than 50% of time in coordination of care during staffing, and counseling patient and . Physical Exam - Physical Exam General Appearance: WD/WN, alert, no apparent distress Respiratory: No respiratory distress, No accessory muscle use Skin: normal color, warm/dry Neuro/Psych: alert, normal mood/affect, oriented x 3, motor weakness ICD10 Worksheet Patient Problems: Problems Problem Status Onset Cerebrovascular accident (CVA) involving right middle cerebral artery territory Acute Left hemiparesis Acute - ICD10 Problem Qualifiers (1) Cerebrovascular accident (CVA) involving right middle cerebral artery territory (2) Left hemiparesis
[2017-01-08] MEDS ORDERED: MELATONIN 3 MG TAB PO PRN (15:44)
[2017-01-08] MEDS: ATORVASTATIN CALCIUM 40 MG TAB PO SCH (20:08)
[2017-01-08] MEDS: ALPRAZolam 0.5 MG TAB PO PRN (20:09)
[2017-01-08] MEDS: GABAPENTIN 300 MG CAP PO SCH (20:09)
[2017-01-09] MEDS: BETHANECHOL 5 MG TAB PO SCH ×4 (06:01→21:08)
[2017-01-09] MEDS: METOPROLOL TARTRATE 25 MG TAB PO SCH ×2 (08:32→21:09)
[2017-01-09] MEDS: APIXABAN 5 MG TAB PO SCH ×2 (08:33→21:08)
[2017-01-09] MEDS: FLUoxetine 20 MG CAP PO SCH (08:34)
[2017-01-09] MEDS: FAMOTIDINE 20 MG TAB PO SCH (08:34)
--- NOTE | 2017-01-09 14:44 | SOAPPROG ---
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 Initial functional independence measure 37 on 12/18/2016; improved to 40 as of 12/25/2016, plateaued at 40 on 01/01/2017 ; improved to 47 as of 01/08/2017. Sliding board transfers to right with minimal assist of 1, to left with moderate to moderate assist of 1. Bed mobility minimal to moderate assist of 1. Ambulated 5 feet in the parallel bars with maximal assist of 2. Can sit can do [id number] with moderate assist of 2. Dress his upper body with minimal assist, lower body with maximal assist of 1. Toilet transfer requires to be at the minimum a will to moderate assistance level. She can do anterior rodrigo care but requires assistance for posterior rodrigo care. Shower transfer required 2 persons. Continue physical therapy and occupational therapy to optimize mobility and activities of daily living. * Dysphagia, status post cerebrovascular accident. Receiving e-stim therapy for poor oral bolus management including discoordination, pocketing L sulcus, and leak from L labial seal. Getting e-stim therapy. Advanced to a dysphagia 3 diet texture with thin liquids. Trial of regular texture starting 2016. Continue Speech and Language Pathology. * Cognitive impairment with decreased executive function which impacts problem solving and memory. She has decreased inhibition and and repair skills. She is stimulus bound and does not easily break attention to attend to another task. Attention is improved with modafinil; changed to methylphenidate due to insomnia. * Restless leg syndrome. also describes symptoms consistent with periodic limb movements of sleep prior to her CVA. May be related to return of function to the left lower extremity. TSH minimally suppressed on labs 2016. CBC and iron panel were within normal limits. Trial of gabapentin starting with 300 mg at HS, 01/06/2017. * Insomnia and somnolence. Overall much improved however using alprazolam most nights. Will add back melatonin 3 mg at bedtime p.r.n.; informed patient that it ceases to work if used more than a few days consecutively. Continue methylphenidate. Continue alprazolam which she has been taking for many years, unlikely to be able to DC. Per report prior to the stroke she was a night owl and often slept in until 10 or 11 in the morning. Shifted morning ADLs as late as possible, 9:00 a.m. Continue to monitor. * Hypertension, with metoprolol having been resumed during her hospitalization. Bradycardia of progressively worse, metoprolol changed from 100 mg twice daily to 50 mg twice daily on 12/19/2016; taper further to 25 mg twice daily on 12/21/2016 and to 12.5 mg twice daily on 09/21/2016; continue and enalapril 10 mg q.day initiated on 12/20/2016. Blood pressure increasingly elevated, increase enalapril to 15 mg p. o. q.day starting 01/09/2017. Increase further to 20 mg QD starting 01/10/17. BP may be up due to methylphenidate. Continue to monitor. * Urinary retention with intermittent elevated postvoid residuals on bladder scanning. Began bethanechol 01/02/2017; appears to be helping. Nursing to monitor for improvement in residuals. Chronic/stable conditions: * Urinary tract infection with symptoms and a suggestive urinalysis, treated with cefuroxime to which E coli was susceptible, and resolved. Recurrent symptoms and positive urinalysis 12/25/2016. Treated with nitrofurantoin 100 mg twice daily for 7 days. * Secondary stroke prophylaxis. Blood pressure control, lipid control, and resumption of anticoagulation starting on December 19, 2016. * Paroxysmal AFib. Stopped warfarin and initiated apixaban 12/21/2016, per patient's request as she does not want repeated blood tests. reports 60 dollar monthly co-pay for apixaban, which she can afford. * Headache. Continue acetaminophen. * Left knee degenerative joint disease with considerable pain. Continue acetaminophen and consider other pain medications if her knee pain interferes with her ability to participate in therapies. * Constipation. Resolved. Continue laxatives. * Gastroesophageal reflux disorder. Continue famotidine and treat constipation. * History of chronic benzodiazepine dependence. Continue alprazolam p.r.n. * Prophylaxis. With hemiparesis she is at elevated risk for deep venous thrombosis. On apixaban and enoxaparin discontinued. Continue famotidine for GERD. No current indication for a proton pump inhibitor. * Doppler ultrasound of lower extremities done 12/18/2016 as nurse found caps tender to palpation. There was no DVT. Attended staffing, 15 minutes. Discussed with case management, dietitian, nursing, PT, OT, ACCOUNT DEVELOPMENT ASSOCIATE. Continues very disabled with high burden of care despite minor increase in FIIM score. Will discharge to [facility] on 2016. 01/09/17 14:43 Subjective: C/O sore throat today; started before lunch. Nurse has noted elevated blood pressure. Patient reports feeling very home sick yesterday and quite emotional and wonders with their this has contributed to her blood pressure. Otherwise without complaints. Objective: Vital Signs Temp Pulse Resp BP Pulse Ox 36.4 C 65 16 146/73 H 92 01/09/17 07:02 01/09/17 14:37 01/09/17 14:37 01/09/17 14:37 01/09/17 14:37 Laboratory Results 01/07/17 07:35 01/07/17 07:35 01/08/17 01/09/17 01/10/17 05:59 05:59 05:59 Intake Total 740 1182 240 Output Total 600 600 650 Balance 140 582 -410 PT 13.8 SEC (12.0-15.0) 12/21/16 06:10 INR 1.07 (0.83-1.16) 12/21/16 06:10 Physical Exam - Physical Exam General Appearance: WD/WN, alert, no apparent distress EENT: pharynx normal, rhinorrhea, No purulent nasal drainage, No pharyngeal erythema Respiratory: normal breath sounds, No crackles, No rhonchi, No wheezing Cardiac/Chest: regular rate, rhythm, No diastolic murmur, No systolic murmur Skin: normal color, warm/dry Neuro/Psych: alert, normal mood/affect, oriented x 3 ICD10 Worksheet Patient Problems: Problems Problem Status Onset Cerebrovascular accident (CVA) involving right middle cerebral artery territory Acute Left hemiparesis Acute - ICD10 Problem Qualifiers (1) Cerebrovascular accident (CVA) involving right middle cerebral artery territory (2) Left hemiparesis
--- NOTE | 2017-01-09 15:31 | PDOREHIP ---
Admission [facility] - Admission - 3 Day Assessment Period Admission Date/Day 1: 12/16/16 Day 2: 12/17/16 Day 3: 12/18/16 Discharge [facility] - Discharge - 3 Day Assessment Period 2 Days Prior to Anticipated Discharge Date: 01/15/17 1 Day Prior to Anticipated Discharge Date: 01/16/17 Anticipated Discharge Date: 01/17/17 - Discharge Skin Conditions Unhealed Pressure Ulcer (1 or more/Stage 1 or >)-Discharge: 0. No
[2017-01-09] MEDS: ATORVASTATIN CALCIUM 40 MG TAB PO SCH (21:08)
[2017-01-09] MEDS: ALPRAZolam 0.5 MG TAB PO PRN (21:08)
[2017-01-09] MEDS: GABAPENTIN 300 MG CAP PO SCH (21:08)
[2017-01-10] MEDS: BETHANECHOL 5 MG TAB PO SCH ×2 (05:27→12:01)
[2017-01-10 05:43] VITALS: TEMP 97.7
[2017-01-10] MEDS: APIXABAN 5 MG TAB PO SCH (08:31)
[2017-01-10] MEDS: FAMOTIDINE 20 MG TAB PO SCH (08:33)
[2017-01-10] MEDS: FLUoxetine 20 MG CAP PO SCH (08:33)
[2017-01-10] MEDS: METOPROLOL TARTRATE 25 MG TAB PO SCH (08:33)
[2017-01-10] MEDS ORDERED: ENALAPRIL MALEATE 20 MG TAB PO SCH (09:00)
[2017-01-10 13:38] VITALS: BP 147/84; PULSE 73; RESP 16; O2SAT 93
--- NOTE | 2017-01-10 20:24 | GDS ---
[f rep st] DISCHARGE SUMMARY ADMITTING DIAGNOSES: Right middle cerebral artery stroke with left upper and lower extremity hemiparesis. DISCHARGE DIAGNOSES: Right middle cerebral artery stroke with left upper and lower extremity hemiparesis. OTHER DISCHARGE DIAGNOSES: 1. Dysphagia. 2. Cognitive impairment. 3. Restless legs syndrome. 4. Insomnia and somnolence. 5. Hypertension. CONSULTATIONS: There were none. PROCEDURES: There were none. COMPLICATIONS: There were none. HISTORY/HOSPITAL COURSE: This patient was admitted from [facility] where she had presented 12/12/2016, with left-sided weakness and facial droop. 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 She received thrombolysis. She had elevated blood pressure in the hospital, treated with labetalol and nicardipine, and subsequently with metoprolol. Aspirin and enoxaparin were begun 24 hours after lytic therapy. There was a brief episode of paroxysmal atrial fibrillation. A urinary tract infection was diagnosed and treatment was begun with antibiotics. She had very slow progress in rehabilitation. Her initial Functional [place] Measure was 37, which is consistent with needing moderate to maximum assistance to total assistance in all aspects of mobility and self- care. She improved to a 40 as of 12/25/2016, and eventually to 47 as of 2016. Her burden of care had decreased from requiring 2 people for most ADLs to requiring 1 person. She could do a sliding transfer to the right with minimal assist of 1, but to the left required moderate assist of 1. Bed mobility required minimal to moderate assist of 1. She was able to ambulate 5 feet in the parallel bars with a maximal assist of 2. She could do sit-to- stand with moderate assistance of 2. She could dress her upper body with minimal assist and lower body with maximal assist of 1. Toilet transfers were done with minimal to moderate assist. She was able to do anterior rodrigo care, but required assistance for posterior rodrigo care. Shower transfer required 2 people. She had dysphagia and this improved. Diet was advanced eventually to a regular texture diet starting 01/08/2017. There was cognitive impairment with decreased executive function which impacted problem solving and memory. She was somewhat stimulus bound and did not easily break attention to attend to another task. Attention improved with modafinil initially which was changed to methylphenidate due to insomnia, and methylphenidate was subsequently titrated without adverse effect. She had hypertension. She came to inpatient rehabilitation with metoprolol 100 mg twice daily, but she had bradycardia and metoprolol was eventually tapered to 12.5 mg twice daily. She was treated with enalapril, which was titrated from 10 mg daily to 20 mg daily. It was unclear whether or not blood pressure was higher due to initiation of methylphenidate. She had elevated postvoid residuals and urinary retention on bladder scanning. She was treated with bethanechol and her urinary retention resolved. She had urinary tract infection which was treated effectively. She grew susceptible Escherichia coli which was treated with cefuroxime. She had recurrent symptoms and a positive urinalysis, and was treated with nitrofurantoin. Subsequently, she has not had urinary tract infection symptoms. With paroxysmal atrial fibrillation, she was treated with apixaban. This was per her request as she did not want repeated blood draws that would be necessary with warfarin. She had knee pain on the left as she began to be increasingly mobilized. She had a history of degenerative joint disease. Knee pain was treated with acetaminophen. She had insomnia. She had been taking alprazolam for many years. There was a trial of trazodone but she felt that it left her groggy in the morning, more so than the alprazolam, so per her preference, the alprazolam was continued and the trazodone was discontinued. With her very slow progress, she was not appropriate to continue in the inpatient rehabilitation setting, and so discharge was arranged to [facility], where she can continue rehabilitation for a longer period of time, which will be more appropriate, given her rate of improvement. She eventually intends to return to [place] with her . LABS AND STUDIES DURING HER STAY: CBC on 01/07/2017, was overall within normal limits, though she had a very slightly low red blood cell count at 3.94, and a slightly high MCH of 34.3. The serum chemistry revealed normal renal function and electrolytes. An iron panel was done because of her restless legs syndrome , which revealed a low TIBC at 245, a normal iron at 56, and a normal iron saturation. Ferritin was also normal. TSH was mildly suppressed at 0.432. DISCHARGE PLAN: 1. Condition upon discharge is fair. 2. Activity is assistance with all mobility and ADLs. 3. Diet is regular with regular texture and thin liquids. 4. Next appointment: She will follow up with her new attending physician at [facility]. MEDICATIONS ON DISCHARGE: 1. Acetaminophen 325 to 650 mg p.o. q.4 hours p.r.n. 2. Alprazolam 0.25 mg p.o. three times daily p.r.n. 3. Apixaban 5 mg p.o. twice daily. 4. Atorvastatin 40 mg p.o. at bedtime. 5. Bethanechol 5 mg p.o. four times daily. 6. Bisacodyl 10 mg per rectum daily p.r.n. 7. Calcium carbonate 500 mg p.o. three times daily p.r.n. indigestion. 8. Enalapril 20 mg p.o. daily. 9. Famotidine 20 mg p.o. daily. 10. Fluoxetine 20 mg p.o. daily. 11. Gabapentin 300 mg p.o. at bedtime. 12. Melatonin 3 mg p.o. at bedtime p.r.n. 13. Methylphenidate 10 mg p.o. twice daily at 0600 and 1200. 14. Metoprolol 12.5 mg p.o. twice daily. 15. Preparation-H cream p.r.n. 16. Senna 1 tablet p.o. twice daily p.r.n. constipation. ISSUES TO BE ADDRESSED AT FOLLOWUP: 1. Functional status: To continue PT and OT at [facility] under the supervision of her new attending physician. 2. Cognitive status: To continue Speech and Language Pathology at [facility]. 3. Subclinical hyperthyroidism with a suppressed TSH. Advise repeat TSH in 4- 6 weeks. 4. Restless legs syndrome, which she had pre-existing and which has recurred in the setting of post cerebrovascular accident. Appears to be well controlled with gabapentin at bedtime. She may not need this permanently, and advise trial of discontinuation in 4-6 weeks. 5. Somnolence and reduced attention. Continue methylphenidate and continue working with Speech and Language Pathology. 6. She is on fluoxetine for neuro recovery per the recommendations of the FLAME trial. It should be continued for approximately 6 months, or through June 2017, at which point it can be assessed whether it is useful for her emotional state. 7. Insomnia. Attempt to wean from alprazolam has been unsuccessful. Expect that she will continue to use alprazolam. 8. Atrial fibrillation. Continue metoprolol and apixaban. 9. Secondary prophylaxis of cerebrovascular accident. Continue atorvastatin. Copy requested to: [facility] Attn: Attending Physician /[id number]/MODL [id number]
== END 2017-01-10 14:47 | DRG 57 ==
LOC: BREH 16:18
PROVIDERS: ADMIT Internal Medicine; ATTEND Internal Medicine
PROC: F07M3ZZ Motor Function Treatment of Musculoskeletal System - Whole Body (ICD-10-PCS; principal; 2016-12-16)
PROC: F08Z7ZZ Vocational Activities and Functional Community or Work Reintegration Skills Treatment (ICD-10-PCS; principal; 2016-12-16)
PROC: F08Z4ZZ Home Management Treatment (ICD-10-PCS; principal; 2016-12-16)
DX: I69.354 Hemiplegia and hemiparesis following cerebral infarction affecting left non-dominant side (principal); I69.392 Facial weakness following cerebral infarction; I69.391 Dysphagia following cerebral infarction; I69.919 Unspecified symptoms and signs involving cognitive functions following unspecified cerebrovascular disease; I65.21 Occlusion and stenosis of right carotid artery; N39.0 Urinary tract infection, site not specified; I48.0 Paroxysmal atrial fibrillation; K59.00 Constipation, unspecified; I10 Essential (primary) hypertension; M17.12 Unilateral primary osteoarthritis, left knee; K21.9 Gastro-esophageal reflux disease without esophagitis; F13.20 Sedative, hypnotic or anxiolytic dependence, uncomplicated; R51 Headache; G47.00 Insomnia, unspecified; G25.81 Restless legs syndrome; R33.9 Retention of urine, unspecified; Z95.3 Presence of xenogenic heart valve
CPT/HCPCS: 92507-GN; 92522-GN; 92526-GN; 92610-GN; 97032-GO; 97110-GO; 97112-GO; 97112-GP; 97116-GP; 97162-GP; 97166-GO; 97530-GO; 97530-GP; 97532-GO; 97535-GO; 97542-GP; 99366-GO; J1650